=== PATIENT | female | born 1960 | race Caucasian/White ===

== ENCOUNTER 2016-11-03 12:16 | Emergency (ER) | payer BC, MEDICAID ==
--- NOTE | 2016-11-03 12:43 | UC ---
Hand/Wrist HPI - HPI Summary HPI Summary: RIGHT THUMB PAIN X 2 WEEKS NO KNOWN INJURY , PAIN IS AT VOLAR ASPECT OF THE MCP JOINT DIFFICULTY WITH FLEXING THE FINGER. - History Of Current Complaint Chief Complaint: UCUpperExtremity Stated Complaint: RIGHT THUMB PAIN Time Seen by Provider: 11/03/16 12:21 Hx Obtained From: Patient Hx Last Menstrual Period: age 48 Onset/Duration: Gradual Onset, Lasting Weeks - 2, Still Present Severity Initially: Moderate Severity Currently: Severe Character Of Pain: Aching, Throbbing, Spasmodic, Stiffness Aggravating Factor(s): Movement, Flexion Alleviating: Nothing Associated Signs And Symptoms: Positive: Swelling. Negative: Redness, Bruising , Fever, Weakness, Numbness/Tingling - Allergies/Home Medications Allergies/Adverse Reactions: Allergies Allergy/AdvReac Type Severity Reaction Status Date / Time Erythromycin Allergy Severe FACIAL Verified 11/03/16 12:29 SWELLING PMH/Surg Hx/FS Hx/Imm Hx Endocrine History Of: Denies: Diabetes, Thyroid Disease Cardiovascular History Of: Denies: Cardiac Disorders, Hypertension, Pacemaker/ICD Respiratory History Of: Reports: COPD, Bronchitis - HX OF Denies: Asthma GI/ History Of: Denies: Ulcer Neurological History Of: Reports: Migraine - OCCASIONAL Cancer History Of: Denies: Breast Cancer - Surgical History Surgical History: Yes Surgery Procedure, Year, and Place: 1988 CYST REMOVED FROM NECK, [facility]. 10/2014 RIGHT SHOULDER SURGERIES X 2, [facility] - Family History Known Family History: Positive: None Negative: Seizure Disorder Family History: FHx of [place] - Social History Alcohol Use: None Substance Use Type: None Smoking Status (MU): Former Smoker Type: Cigarettes Amount Used/How Often: 1 PPD X 25 YEARS Length of Time of Smoking/Using Tobacco: QUIT 2013 Have You Smoked in the Last Year: No When Did the Patient Quit Smoking/Using Tobacco: 2012 - Immunization History Most Recent Influenza Vaccination: 2012? Most Recent Tetanus Shot: unkown Most Recent Pneumonia Vaccination: never Review of Systems Constitutional: Negative Skin: Negative Eyes: Negative ENT: Negative Respiratory: Negative Cardiovascular: Negative All Other Systems Reviewed And Are Negative: Yes Physical Exam Triage Information Reviewed: Yes Appearance: Well-Appearing, No Pain Distress, Well-Nourished Vital Signs: Initial Vital Signs Pulse 87 11/03/16 12:20 Resp 22 11/03/16 12:20 BP 144/84 02/28/17 12:20 Pulse Ox 97 11/03/16 12:20 Vital Signs Reviewed: Yes Eye Exam: Normal Eyes: Positive: Conjunctiva Clear ENT: Positive: Normal ENT inspection, Hearing grossly normal, Pharynx normal Neck exam: Normal Neck: Positive: Supple, Nontender, No Lymphadenopathy Respiratory: Positive: Chest non-tender, Lungs clear, Normal breath sounds Cardiovascular: Positive: RRR, No Murmur, Pulses Normal Musculoskeletal: Positive: Other: - RIGHT THUMB: + SWELLING , + TENDERNESS VOLAR ASPECT OF THE FINGER , LIMITED ROM ON FLEXION Hand/Wrist Course/Dx - Differential Dx/Diagnosis Provider Diagnoses: TRIGGER FINGER RIGHT THUMB Discharge - Discharge Plan Condition: Stable Disposition: HOME Patient Education Materials: Trigger Finger (ED) Referrals: Rome Romeo MD [Medical Doctor] - As Soon As Possible Kiet Mejía MD [Medical Doctor] -
--- NOTE | 2016-11-03 13:02 | RAD ---
Indication: Multiple weeks RIGHT thumb pain without proceeding injury. Comparison: None. Technique: AP, lateral, and oblique views RIGHT thumb. Report: Minimal osteophytosis from the trapezium first metacarpal joint through the interphalangeal joint. Negative for significant joint space narrowing. Negative for fracture or malalignment. Unremarkable soft tissue contours. IMPRESSION: Mild polyarticular degenerative arthropathy.
[2016-11-03 13:16] VITALS: BP 139/78
== END 2016-11-03 13:17 | disposition home or self-care (01) ==
LOC: UCCORT 12:16
DX: M65.311 Trigger thumb, right thumb (principal); Z88.1 Allergy status to other antibiotic agents; Z87.891 Personal history of nicotine dependence
CPT/HCPCS: 99211; G0463

== ENCOUNTER 2016-11-04 17:14 | Emergency (ER) | payer BC ==
[2016-11-04 17:20] VITALS: BP 134/83
--- NOTE | 2016-11-04 17:37 | UC ---
Allergic Reaction HPI - HPI Summary HPI Summary: The patient comes in today for: 1. Possible allergic reaction: Onset: Last night. Palliative/provocative: Nothing makes her symptoms better or worse. Quality: Flushed in the face. Region: Cheeks. Severity: 0/10 Time: Constant. Associated symptoms: Event: The patient was seen by Dr. Romeo yesterday. She had a cortisone injection into her right thumb for a trigger finger. She noted puffiness around the eyes and flushing of the face last, but worse this AM. She called Dr. Romeo's office and they told her to come here for evaluation. Shortness of breath: Nothing new. She feels flushed in the face and puffy around the eyes. 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 Endocrine History Of: Denies: Diabetes, Thyroid Disease, Hyperthyroidism, Hypothyroidism, Dyslipidemia Cardiovascular History Of: Denies: Cardiac Disorders, Hypertension, Pacemaker/ICD, Myocardial Infarction , Congestive Heart Failure, Atrial Fibrillation, Deep Vein Thrombosis, Bleeding Disorders Respiratory History Of: Reports: COPD, Bronchitis - HX OF Denies: Asthma GI/ History Of: Denies: Gastroesophageal Reflux, Ulcer, Gastrointestinal Bleed, Gall Bladder Disease, Kidney Stones, Diverticulitis, Renal Disease, Urosepsis Neurological History Of: Reports: Migraine - OCCASIONAL Denies: TIA, CVA, Dementia, Seizures Psychological History Of: Denies: Anxiety, Depression, Bipolar Disorder, Schizophrenia, Post Traumatic Stress Disorder Cancer History Of: Denies: Lung Cancer, Colorectal Cancer, Breast Cancer, Prostate Cancer, Cervical Cancer Other History Of: Negative For: HIV, Hepatitis B, Hepatitis C, Anticoagulant Therapy - Surgical History Surgical History: Yes Surgery Procedure, Year, and Place: 1988 CYST REMOVED FROM NECK, [facility]. 10/2014 RIGHT SHOULDER SURGERIES X 2, [facility] - Family History Known Family History: Positive: Diabetes Negative: Cardiac Disease, Hypertension, Seizure Disorder Family History: FHx of [place] - Social History Occupation: Employed Full-time Alcohol Use: None Substance Use Type: None Smoking Status (MU): Former Smoker Type: Cigarettes Amount Used/How Often: 1 PPD X 25 YEARS Length of Time of Smoking/Using Tobacco: QUIT 2013 Have You Smoked in the Last Year: No When Did the Patient Quit Smoking/Using Tobacco: 2012 - Immunization History Most Recent Influenza Vaccination: 2012? Most Recent Tetanus Shot: unkown Most Recent Pneumonia Vaccination: never Review of Systems Constitutional: Negative Skin: Negative Eyes: Negative ENT: Negative Respiratory: Negative Cardiovascular: Negative Gastrointestinal: Negative Genitourinary: Negative All Other Systems Reviewed And Are Negative: Yes Physical Exam Triage Information Reviewed: Yes Appearance: Well-Appearing, No Pain Distress, Well-Nourished Vital Signs: Initial Vital Signs Temp 96.4 F 11/04/16 17:18 Pulse 101 11/04/16 17:18 Resp 14 11/04/16 17:18 BP 134/83 11/04/16 17:18 Pulse Ox 96 11/04/16 17:18 Vital Signs Reviewed: Yes Eyes: Positive: Conjunctiva Clear. Negative: Discharge ENT: Positive: Hearing grossly normal. Negative: Pharyngeal erythema, Nasal congestion, Nasal drainage, TM bulging, TM dull, TM red, Tonsillar swelling, Tonsillar exudate Dental: Negative: Gross Decay/Caries @, Dental Fracture @ Neck: Positive: Supple, Nontender, No Lymphadenopathy. Negative: Nuchal Rigidity Respiratory: Positive: Chest non-tender, Lungs clear, No respiratory distress, No accessory muscle use. Negative: Crackles, Stridor Cardiovascular: Positive: RRR, No Murmur Abdomen Description: Positive: Nontender, No Organomegaly, Soft. Negative: Distended, Guarding Musculoskeletal: Positive: Strength Intact, ROM Intact Neurological: Positive: Alert, Muscle Tone Normal Psychological: Positive: Age Appropriate Behavior, Consolable Skin: Positive: Other - There was no pathologic or worrisom puffiness around the eyes. There is no marked flushing of the cheeks.. Negative: rashes, breakdown Allergic Reaction Course/Dx - Course Course Of Treatment: Patient was told that the symptoms she has had is probably from her injection medication--no allergy to the injection. - Differential Dx/Diagnosis Provider Diagnoses: Minimal edema (associated to steroid use) Discharge - Discharge Plan Condition: Stable Disposition: HOME Patient Education Materials: Edema (ED) Referrals: PARDEEP Raza [Primary Care Provider] - If Needed (Please see your primary care provider as needed. If you have any problems, be seen again at that time.) Additional Instructions: Please continue to monitor your symptoms. YOu may notice these symptoms continuing for a few more days to a week. If you get worse, you can see your primary care provider or us for a re-evaluation.
== END 2016-11-04 18:11 | disposition home or self-care (01) ==
LOC: UCCORT 17:14
DX: R60.9 Edema, unspecified (principal); R23.2 Flushing; Z88.1 Allergy status to other antibiotic agents; Z87.891 Personal history of nicotine dependence
CPT/HCPCS: 99211; G0463

== ENCOUNTER 2017-01-12 09:38 | Emergency (ER) | payer BC ==
[2017-01-12 09:49] VITALS: BP 144/95
[2017-01-12] MEDS ORDERED: HYDROcodone/ACETAMIN 5-325 MG* 1 TAB PO ONE (10:14)
--- NOTE | 2017-01-12 10:59 | RAD ---
INDICATION: Right ankle injury. TECHNIQUE: 3 views of the right ankle were obtained. FINDINGS: Soft tissue swelling is noted along the anterolateral aspect of the ankle. There is a faint radiolucent line seen on the lateral view extending through the distal fibula possibly representing a transverse nondisplaced fracture. No other fractures are seen. Joint spaces appear maintained. IMPRESSION: SOFT TISSUE SWELLING AND PROBABLE NONDISPLACED FRACTURE OF THE DISTAL FIBULA.
--- NOTE | 2017-01-12 11:00 | RAD ---
INDICATION: Left knee injury. TECHNIQUE: 4 views of the left knee were obtained. FINDINGS: There is an oblique slightly comminuted fracture of the proximal diaphysis of the fibula. There is slight lateral displacement of the distal fragment relative to the proximal fragment of approximately 1 cortical diameter. No other fractures are seen. No joint effusion is present. Joint spaces appear maintained. IMPRESSION: OBLIQUE SLIGHTLY DISPLACED FRACTURE OF THE PROXIMAL FIBULA.
--- NOTE | 2017-01-12 11:01 | RAD ---
HISTORY: Fall, right ankle and foot pain COMPARISONS: None VIEWS: 3, Frontal, lateral, and oblique views of the right foot FINDINGS: BONE DENSITY: Normal. BONES: There is no displaced fracture. There are calcaneal enthesophytes. JOINTS: There is osteoarthritis of the first MTP joint ALIGNMENT: There is hallux valgus SOFT TISSUES: Unremarkable. OTHER FINDINGS: None. IMPRESSION: OSTEOARTHRITIS. NO ACUTE OSSEOUS INJURY. IF SYMPTOMS PERSIST, RECOMMEND REPEAT IMAGING.
--- NOTE | 2017-01-12 11:48 | RAD ---
HISTORY: Trauma to right leg, trauma to left leg COMPARISONS: None VIEWS: 4, Frontal and lateral views of the right foreleg and of the left foreleg FINDINGS: Right: BONE DENSITY: Normal. BONES: There is a questionable nondisplaced fracture of the medial tibial plateau JOINTS: There is no arthropathy. ALIGNMENT: There is no dislocation. The alignment is anatomic. SOFT TISSUES: Unremarkable. Left: BONE DENSITY: Normal. BONES: There is a slightly displaced fracture of the proximal fibular diaphysis. JOINTS: There is no arthropathy. ALIGNMENT: There is no dislocation. The alignment is anatomic. SOFT TISSUES: Unremarkable. OTHER FINDINGS: None. IMPRESSION: 1. FRACTURE OF THE PROXIMAL FIBULAR DIAPHYSIS ON THE LEFT. 2. QUESTIONABLE FRACTURE OF MEDIAL TIBIAL PLATEAU ON THE RIGHT. RECOMMEND CORRELATION WITH DEDICATED IMAGING OF THE RIGHT KNEE
--- NOTE | 2017-01-12 13:34 | RAD ---
HISTORY: Fall, right knee pain COMPARISONS: None VIEWS: 4, Frontal, lateral, axial, and oblique views of the right knee FINDINGS: BONE DENSITY: Normal. BONES: There is no displaced fracture. JOINTS: There is no arthropathy. ALIGNMENT: There is no dislocation. SOFT TISSUES: Unremarkable. OTHER FINDINGS: None. IMPRESSION: NO ACUTE OSSEOUS INJURY. IF SYMPTOMS PERSIST, RECOMMEND REPEAT IMAGING.
--- NOTE | 2017-02-20 02:46 | UC ---
Ananth Sung Salem, scribed for Tika Dye MD on 01/12/17 at 1011 . Minor Trauma HPI - HPI Summary HPI Summary: Patient is a 56 y/o female who presents to the with 10/10 left knee and right ankle pain since earlier today. She reports that she fell 2-3 steps and landed on the sidewalk. Her ankle twisted when she fell and her right shoulder landed on the lawn. She denies any hip or back pain. Pt is currently on Augmentin for bronchitis. Pt has COPD. Patients medication reviewed this visit. - History of Current Complaint Chief Complaint: UCLowerExtremity Stated Complaint: LEG INJURY Time Seen by Provider: 01/12/17 10:00 Hx Obtained From: Patient, Family/Integration Lead - . Hx Last Menstrual Period: age 48 Onset/Duration: Gradual Onset, Lasting Hours, Still Present Severity Initially: Moderate Severity Currently: Moderate Pain Intensity: 10 Pain Scale Used: 0-10 Numeric Mechanism Of Injury: Blunt Trauma Aggravating Factor(s): Ambulation, Movement Alleviating Factor(s): Rest - Allergies/Home Medications Allergies/Adverse Reactions: Allergies Allergy/AdvReac Type Severity Reaction Status Date / Time Erythromycin Allergy Severe FACIAL Verified 11/03/16 12:29 SWELLING Home Medications: Home Medications Amoxicillin/Clavulanate TAB* [Augmentin TAB 875*] 875 mg PO DAILY 01/12/17 [ History Confirmed 01/12/17] Omeprazole CAP* [Prilosec CAP* 20 MG] 20 mg PO 01/12/17 [History] PMH/Surg Hx/FS Hx/Imm Hx Endocrine History Of: Denies: Diabetes, Thyroid Disease, Hyperthyroidism, Hypothyroidism, Dyslipidemia Cardiovascular History Of: Denies: Cardiac Disorders, Hypertension, Pacemaker/ICD, Myocardial Infarction , Congestive Heart Failure, Atrial Fibrillation, Deep Vein Thrombosis, Bleeding Disorders Respiratory History Of: Reports: COPD, Bronchitis - HX OF Denies: Asthma GI/ History Of: Denies: Gastroesophageal Reflux, Ulcer, Gastrointestinal Bleed, Gall Bladder Disease, Kidney Stones, Diverticulitis, Renal Disease, Urosepsis Neurological History Of: Reports: Migraine - OCCASIONAL Denies: TIA, CVA, Dementia, Seizures Psychological History Of: Denies: Anxiety, Depression, Bipolar Disorder, Schizophrenia, Post Traumatic Stress Disorder Cancer History Of: Denies: Lung Cancer, Colorectal Cancer, Breast Cancer, Prostate Cancer, Cervical Cancer Other History Of: Negative For: HIV, Hepatitis B, Hepatitis C, Anticoagulant Therapy - Surgical History Surgical History: Yes Surgery Procedure, Year, and Place: 1988 CYST REMOVED FROM NECK, [facility]. 10/2014 RIGHT SHOULDER SURGERIES X 2, [facility] - Family History Known Family History: Positive: Diabetes Negative: Cardiac Disease, Hypertension, Seizure Disorder Family History: FHx of [place] - Social History Alcohol Use: None Substance Use Type: None Smoking Status (MU): Former Smoker Type: Cigarettes Amount Used/How Often: 1 PPD X 25 YEARS Length of Time of Smoking/Using Tobacco: QUIT 2013 Have You Smoked in the Last Year: No When Did the Patient Quit Smoking/Using Tobacco: 2012 - Immunization History Most Recent Influenza Vaccination: 2012? Most Recent Tetanus Shot: unkown Most Recent Pneumonia Vaccination: never Review of Systems Constitutional: Negative Musculoskeletal: Other: - see HPI. All Other Systems Reviewed And Are Negative: Yes Physical Exam Triage Information Reviewed: Yes Appearance: Well-Nourished, Pain Distress - pain w/ examination, sitting in chair, Obese Vital Signs: Initial Vital Signs Temp 97.4 F 01/12/17 09:41 Pulse 95 01/12/17 09:41 Resp 22 01/12/17 09:41 BP 144/95 01/12/17 09:41 Pulse Ox 98 01/12/17 09:41 Blood pressure noted and patient informed to follow up with PCP. Vital Signs Reviewed: Yes Eye Exam: Normal ENT Exam: Normal ENT: Positive: Normal ENT inspection Neck exam: Normal Neck: Positive: Supple, Nontender Respiratory Exam: Normal - no dyspnea, no tachypnea, normal respiratory rate Respiratory: Positive: Chest non-tender, Lungs clear, Normal breath sounds, No respiratory distress, No accessory muscle use Cardiovascular Exam: Normal - Heart rate regular, good general skin color, good capillary refill Cardiovascular: Positive: RRR, No Murmur, Pulses Normal Abdominal Exam: Normal Abdomen Description: Positive: Nontender, No Organomegaly, Soft Bowel Sounds: Positive: Present Musculoskeletal Exam: Other - R ankle tender lateral mall and distal fib. Foot nontender, good distal pulses. No prox tib fib tenderness appreciated. R knee nontender to exam. L knee + echymosis, tender throughout including inf patella , mild crepitus. No distal LLE tenderness to exam. L foot good pulses, nontender. Neurological Exam: Normal - nonfocal, grossly intact Psychological Exam: Normal - conversing easily and appropriately Skin Exam: Normal - no visible or reported rash + ecchymosis Diagnostics - Radiology Ankle right XR Radiology Interpretation Completed By: Radiologist - IMPRESSION: SOFT TISSUE SWELLING AND PROBABLE NONDISPLACED FRACTURE OF THE DISTAL FIBULA. Foot right XR Radiology Interpretation Completed By: Radiologist - IMPRESSION: OSTEOARTHRITIS. NO ACUTE OSSEOUS INJURY. IF SYMPTOMS PERSIST, RECOMMEND REPEAT IMAGING. Knee left XR Radiology Interpretation Completed By: Radiologist - IMPRESSION: OBLIQUE SLIGHTLY DISPLACED FRACTURE OF THE PROXIMAL FIBULA. Lower Leg Right Radiology Interpretation Completed By: Radiologist - IMPRESSION: 1. FRACTURE OF THE PROXIMAL FIBULAR DIAPHYSIS ON THE LEFT. 2. QUESTIONABLE FRACTURE OF MEDIAL TIBIAL PLATEAU ON THE RIGHT. RECOMMEND CORRELATION WITH DEDICATED IMAGING OF THE RIGHT KNEE Lower Leg Left Radiology Interpretation Completed By: Radiologist - IMPRESSION: 1. FRACTURE OF THE PROXIMAL FIBULAR DIAPHYSIS ON THE LEFT. 2. QUESTIONABLE FRACTURE OF MEDIAL TIBIAL PLATEAU ON THE RIGHT. RECOMMEND CORRELATION WITH DEDICATED IMAGING OF THE RIGHT KNEE Knee right Radiology Interpretation Completed By: Radiologist - See EMR - pending. Re-Evaluation - Re-Evaluation First Eval Re-Evaluation Time: 11:14 Comment: Informed pt of results. Second Eval Re-Evaluation Time: 12:35 Comment: Informed pt of plan. Minor Trauma Course/Dx - Course Course Of Treatment: Xrays ordered @ 1115. Reviewed xray results with pt and spouse: + fx distal fib R, + fx prox fib L. Based on these reports, further xrays ordered, noteworthy for the above, also questionable problem tib plateau ( see radiology reports in [facility] and xrays for actual imaging). She is unable to ambulate 2/2 pain, currently in wheelchair. Splinting challenging as well, given current wheelchair condition and unable to utilize crutches. D/w orthopedic surgeon - he requests pt d/c'd from [facility] to go to his office so that coa and tx plan can be determined. Further formal splinting / immobilization as well as scripts for analgesia per orthopedics. Ms. Sosa and her express understanding and agreement, will go from [facility] to office. See avs instructions. questions answered as posed. Referral orthopedic surgeon - Differential Dx/Diagnosis Provider Diagnoses: R distal fib fx. L prox fib fx. Contusions - Physician Notifications Discussed Patient Care With: Dr. Conrad (ortho) @ [id number]. Discussed case. Pt will see orthopedist this afternoon. Discharge - Discharge Plan Condition: Stable Disposition: HOME Patient Education Materials: Ankle Fracture (ED) Referrals: Kemal Luciano MD [Medical Doctor] - PARDEEP Raza [Primary Care Provider] - Additional Instructions: Please follow up with your primary care provider per routine. Seek medical attention for worsening problems in the meantime. Follow up with Dr. Luciano this afternoon - call to confirm appointment time. Mobilization / Immobilization recommendations per Dr. Luciano. Pain medication prescription per Dr. Luciano. The documentation as recorded by the Ananth cronin Salem accurately reflects the service I personally performed and the decisions made by me, Tika Dye MD.
== END 2017-01-12 13:09 | disposition home or self-care (01) ==
LOC: UCEAST 09:38
DX: S82.432A Displaced oblique fracture of shaft of left fibula, initial encounter for closed fracture (principal); S80.02XA Contusion of left knee, initial encounter; W10.9XXA Fall (on) (from) unspecified stairs and steps, initial encounter; Y93.9 Activity, unspecified; J44.9 Chronic obstructive pulmonary disease, unspecified; G43.909 Migraine, unspecified, not intractable, without status migrainosus; E66.9 Obesity, unspecified; Z88.1 Allergy status to other antibiotic agents; Z87.891 Personal history of nicotine dependence
CPT/HCPCS: 99213; G0463

== ENCOUNTER 2017-03-28 19:05 | Emergency (ER) | payer BC, MEDICAID ==
[2017-03-28 19:20] VITALS: BP 137/69
--- NOTE | 2017-03-28 19:33 | UC ---
Lower Extremity/Ankle HPI - HPI Summary HPI Summary: Pt reports that she was walking through parking lot and stepped in a hole and tripped onto bilateral abrasions and knee pain. Pt has history of lower extremity fracture 6 months ago. - History of Current Complaint Chief Complaint: UCLowerExtremity Stated Complaint: PT FELL/BILATERAL KNEE INJURY Time Seen by Provider: 03/28/17 19:26 Hx Obtained From: Patient Hx Last Menstrual Period: age 48 ?: No Onset/Duration: Sudden Onset, Still Present Severity Initially: Moderate Severity Currently: Moderate Aggravating Factor(s): Standing, Ambulation Alleviating Factor(s): Rest, Elevation Able to Bear Weight: Yes - Risk Factors Gout Risk Factors: Age Over 40, Obesity DVT Risk Factors: Negative Septic Arthritis Risk Factor: Negative - Allergies/Home Medications Allergies/Adverse Reactions: Allergies Allergy/AdvReac Type Severity Reaction Status Date / Time Erythromycin Allergy Severe FACIAL Verified 03/28/17 19:20 SWELLING PMH/Surg Hx/FS Hx/Imm Hx Previously Healthy: Yes Other History Of: Negative For: HIV, Hepatitis B, Hepatitis C, Anticoagulant Therapy - Surgical History Surgical History: Yes Surgery Procedure, Year, and Place: 1988 CYST REMOVED FROM NECK, [facility]. 10/2014 RIGHT SHOULDER SURGERIES X 2, [facility] - Family History Known Family History: Positive: Diabetes Negative: Cardiac Disease, Hypertension, Seizure Disorder Family History: FHx of [place] - Social History Occupation: Unemployed Lives: With Family Alcohol Use: None Substance Use Type: None Smoking Status (MU): Former Smoker Type: Cigarettes Amount Used/How Often: 1 PPD X 25 YEARS Length of Time of Smoking/Using Tobacco: QUIT 2013 Have You Smoked in the Last Year: No When Did the Patient Quit Smoking/Using Tobacco: 2012 - Immunization History Most Recent Influenza Vaccination: 2012? Most Recent Tetanus Shot: unkown Most Recent Pneumonia Vaccination: never Review of Systems Constitutional: Negative Skin: Other - abrasion Eyes: Negative ENT: Negative Respiratory: Negative Cardiovascular: Negative Gastrointestinal: Negative Genitourinary: Negative Motor: Decreased ROM - bilateral knee Neurovascular: Negative Musculoskeletal: Arthralgia - bilateral knees, Myalgia - bialteral knees Neurological: Negative Psychological: Negative All Other Systems Reviewed And Are Negative: Yes Physical Exam Triage Information Reviewed: Yes Appearance: Pain Distress - mild Vital Signs: Initial Vital Signs Temp 98.7 F 03/28/17 19:15 Pulse 90 03/28/17 19:15 Resp 19 03/28/17 19:15 BP 137/69 03/28/17 19:15 Pulse Ox 96 03/28/17 19:15 Vital Signs Reviewed: No Eye Exam: Normal Neck exam: Normal Respiratory Exam: Normal Cardiovascular Exam: Normal Musculoskeletal Exam: Other Musculoskeletal: Positive: ROM Limited @ - bialteral knees Neurological Exam: Normal Psychological Exam: Normal Skin Exam: Other - abrasiona bialteral knees each superficial and ~ 2 cm diameter Lower Extremity Course/Dx - Course Course Of Treatment: IMPRESSION: OBLIQUE MINIMALLY DISPLACED FRACTURE OF THE PROXIMAL FIBULA UNCHANGED IN. POSITION FROM THE PRIOR EXAM WITH MILD INTERVAL HEALING RESPONSE. RECOMMEND CONTINUED. FOLLOW-UP TO DEMONSTRATE COMPLETE HEALING. I discussed with the pt to follow up with her orthopedic provider as soon as possible. - Differential Dx/Diagnosis Differential Diagnosis/HQI/PQRI: Fracture (Closed), Other - abrasions Provider Diagnoses: Fracture left fibula. IMPRESSION: OBLIQUE MINIMALLY DISPLACED FRACTURE OF THE PROXIMAL FIBULA UNCHANGED IN. POSITION FROM THE PRIOR EXAM WITH MILD INTERVAL HEALING RESPONSE. RECOMMEND CONTINUED. FOLLOW-UP TO DEMONSTRATE COMPLETE HEALING. Discharge - Discharge Plan Condition: Stable Disposition: HOME Patient Education Materials: Leg Fracture (ED) Referrals: Kemal Luciano MD [Medical Doctor] - 1 Day PARDEEP Raza [Primary Care Provider] - Additional Instructions: Please do not bear weight on the affected leg. Please follow up immediately with your orthopedic provider.
--- NOTE | 2017-03-28 20:15 | RAD ---
INDICATION: Left lower leg injury. COMPARISON: Comparison is made with a prior x-ray study of the left lower leg from January 21, 2017. TECHNIQUE: 2 views of the left lower leg were obtained. FINDINGS: There is an oblique slightly comminuted fracture of the proximal diaphysis of the fibula. This is minimally displaced with the distal fragment displaced one cortical diameter lateral relative to the proximal fragment. There is some bony callus formation since the prior exam although the fracture is still well visualized. No additional fracture is seen. IMPRESSION: OBLIQUE MINIMALLY DISPLACED FRACTURE OF THE PROXIMAL FIBULA UNCHANGED IN POSITION FROM THE PRIOR EXAM WITH MILD INTERVAL HEALING RESPONSE. RECOMMEND CONTINUED FOLLOW-UP TO DEMONSTRATE COMPLETE HEALING.
--- NOTE | 2017-03-28 20:19 | RAD ---
INDICATION: Right lower leg injury. Comparison is made with a prior x-ray study of the right ankle from February 08, 2017. TECHNIQUE: 2 views of the right lower leg were obtained. FINDINGS: The bones are in normal alignment. There is mild soft tissue swelling adjacent to the distal fibula. The previously noted small avulsion fracture fragment arising from the distal fibula is not well seen on this study. No additional fracture is seen. IMPRESSION: SOFT TISSUE SWELLING. THE PREVIOUSLY NOTED SMALL AVULSION FRACTURE FRAGMENT ARISING FROM THE DISTAL FIBULA IS NOT WELL SEEN ON THIS STUDY.
== END 2017-03-28 20:48 | disposition home or self-care (01) ==
LOC: UCCORT 19:05
DX: S82.892D Other fracture of left lower leg, subsequent encounter for closed fracture with routine healing (principal); W19.XXXD Unspecified fall, subsequent encounter; Y92.9 Unspecified place or not applicable; Z87.891 Personal history of nicotine dependence; Z88.1 Allergy status to other antibiotic agents
CPT/HCPCS: 99212; G0463

== ENCOUNTER 2017-06-23 23:08 | Inpatient (IN) | payer OTHER ==
[2017-06-23] MEDS ORDERED: Albuterol 2.5 MG/3 ML NEB.SOL* (0.083%) INH ONE (23:26)
[2017-06-23] MEDS ORDERED: Magnesium Sulfate 2 GM IV* 2 GM/50 ML BAG IVPB ONE (23:29)
[2017-06-23] MEDS ORDERED: LORazepam INJ* 2 MG/ML 1 ML VIAL IV PUSH ONE (23:48)
[2017-06-24 00:13] LABS: Hematocrit 44 % (35-47); Mean Corpuscular HGB Conc 34 g/dl (31-36); Mean Corpuscular Hemoglobin 31 pg (27-31); Mean Corpuscular Volume 92 fL (80-97); Mean Platelet Volume 8 um3 (7.4-10.4); Red Blood Count 4.78 10^6/ul (4.0-5.4); Red Cell Distribution Width 14 % (10.5-15)
[2017-06-24 00:16] LABS: Comments Flag Yes
[2017-06-24 00:27] LABS: Albumin 3.7 g/dL (3.2-5.2); BUN/Creatinine Ratio 13.5 (8-20); Calcium 8.6 mg/dL (8.6-10.3); EGFR African American 64.9 (>60); EGFR Non-African American 50.5 (>60); Globulin 2.6 g/dL (2-4); Magnesium 1.9 mg/dL (1.9-2.7); Total Bilirubin 0.9 mg/dL (0.2-1.0); Total Protein 6.3 g/dL (6.4-8.9)
[2017-06-24 00:28] LABS: Troponin I 0.01 ng/mL (<0.04)
--- NOTE | 2017-06-24 05:14 | ED ---
Jodi Sung Thomas, scribed for Johnnie Dunn MD on 06/23/17 at 2330 . Shortness of Breath - HPI Summary HPI Summary: The pt is a 57 y/o F BIBA c/o chest heaviness and SOB at rest that began today. EMS treated the patients SOB with Decadron 10mg, one DuoNeb, and an albuterol MATHEMATICS DEPARTMENT CHAIR. Pt additionally c/o wheezing and a cough. Pt denies leg pain and leg swelling. She has been dealing with bronchitis for the last four weeks. She took a course of Augmentin as well as a course of Levaquin that she finished 3- 4 days ago. PMHx includes COPD, emphysema, and hereditary ataxia. She had a stress test performed last week that was negative. She is a former smoker and stopped smoking three years ago. She recently drove 5 hours with frequent stops. She denies a Hx of CA and she denies a FHx of DVT. - History of Current Complaint Chief Complaint: EDShortnessOfBreath Hx Obtained From: Patient, EMS Onset/Duration: Still Present Dyspnea At: Rest Aggrevating Factors: Nothing Alleviating Factors: Nothing Associated Signs & Symptoms: Cough (Nonproductive) Related History: Similar Episode - Patient has been dealing with bronchitis for the last 4 weeks - Allergy/Home Medications Allergies/Adverse Reactions: Allergies Allergy/AdvReac Type Severity Reaction Status Date / Time Erythromycin Allergy Severe FACIAL Verified 03/28/17 19:20 SWELLING PMH/Surg Hx/FS Hx/Imm Hx Previously Healthy: No Endocrine/Hematology History: Denies: Hx Anticoagulant Therapy, Hx Diabetes, Hx Thyroid Disease Cardiovascular History: Denies: Hx Congestive Heart Failure, Hx Deep Vein Thrombosis, Hx Hypertension , Hx Myocardial Infarction, Hx Pacemaker/ICD Respiratory History: Reports: Hx Chronic Obstructive Pulmonary Disease (COPD), Other Respiratory Problems/Disorders - Hx emphysema Denies: Hx Asthma, Hx Lung Cancer GI History: Reports: Hx Hiatal Hernia Denies: Hx Gall Bladder Disease, Hx Gastrointestinal Bleed, Hx Ulcer, Hx Urosepsis History: Denies: Hx Kidney Stones, Hx Renal Disease Sensory History: Reports: Hx Contacts or Glasses - READING GLASSES, Hx Glaucoma - ?? Denies: Hx Hearing Aid Opthamlomology History: Reports: Hx Contacts or Glasses - READING GLASSES, Hx Glaucoma - ?? Neurological History: Reports: Hx Migraine - OCCASIONAL, Other Neuro Impairments /Disorders - DIZZINESS SPELLS SINCE A CHILE - NONE IN A GREAT WHILE. Hx hereditary atax Denies: Hx Dementia, Hx Seizures, Hx Transient Ischemic Attacks (TIA) Psychiatric History: Denies: Hx Anxiety, Hx Depression, Hx Panic Disorder, Hx Schizophrenia, Hx Bipolar Disorder - Cancer History Hx Chemotherapy: No Hx Radiation Therapy: No - Surgical History Surgery Procedure, Year, and Place: 1988 CYST REMOVED FROM NECK, [facility]. 10/2014 RIGHT SHOULDER SURGERIES X 2, [facility] Hx Anesthesia Reactions: No Infectious Disease History: No Infectious Disease History: Denies: Hx Clostridium Difficile, Hx Hepatitis, Hx Human Immunodeficiency Virus (HIV), Hx of Known/Suspected MRSA, Hx Shingles, Hx Tuberculosis, Hx Known/ Suspected VRE, Hx Known/Suspected VRSA, History Other Infectious Disease, Traveled Outside the [place] in Last 30 Days - Family History Known Family History: Positive: Diabetes, Other - FHx is negative for DVT Negative: Cardiac Disease, Hypertension, Seizure Disorder Family History: FHx of CA - Social History Alcohol Use: None Substance Use Type: Reports: None Hx Tobacco Use: Yes Smoking Status (MU): Former Smoker Type: Cigarettes Amount Used/How Often: 1 PPD X 25 YEARS. Quit in 2013 Length of Time of Smoking/Using Tobacco: QUIT 2013 Have You Smoked in the Last Year: No Review of Systems Negative: Fever Positive: Other - Chest heaviness Positive: Shortness Of Breath - at rest, Cough Negative: Other - NEGATIVE: leg pain, leg swelling All Other Systems Reviewed And Are Negative: Yes Physical Exam - Summary Physical Exam Summary: Appearance: Well-appearing, Well-nourished. Skin: Warm Eyes: Normal ENT: Normal Neck: Supple, nontender Respiratory: There are diffuse bilateral expiratory wheezes throughout the lung [place]. She is slightly tachypnic. Cardiovascular: Normal heart sounds. S1 and S2 are present. There is no murmur. Abdomen: Soft, nontender Bowel: Present Musculoskeletal: Normal, Strength/ROM Intact. There is no calf tenderness, swelling, or erythema. Neurological: Normal, Alert, Oriented to Person Psychiatric: Normal Triage Information Reviewed: Yes Vital Signs On Initial Exam: Initial Vitals Temp Pulse Resp BP Pulse Ox 98.6 F 108 24 159/82 90 06/23/17 23:10 06/23/17 23:10 06/23/17 23:10 06/23/17 23:10 06/23/17 23:10 Vital Signs Reviewed: Yes Diagnostics - Vital Signs Vital Signs Temp Pulse Resp BP Pulse Ox 06/23/17 23:10 98.6 F 108 24 159/82 90 - Laboratory Lab Results: Lab Results 06/24/17 06/24/17 06/24/17 Range/Units 00:00 00:03 23:58 WBC 12.0 H (3.5-10.8) 10^3/ul RBC 4.78 (4.0-5.4) 10^6/ul Hgb 15.0 (12.0-16.0) g/dl Hct 44 (35-47) % MCV 92 (80-97) fL MCH 31 (27-31) pg MCHC 34 (31-36) g/dl RDW 14 (10.5-15) % Plt Count 199 (150-450) 10^3/ul MPV 8 (7.4-10.4) um3 Neut % (Auto) 73.4 (38-83) % Lymph % (Auto) 13.8 L (25-47) % Sanders % (Auto) 9.9 H (1-9) % Eos % (Auto) 2.4 (0-6) % Baso % (Auto) 0.5 (0-2) % Absolute Neuts (auto) 8.8 H (1.5-7.7) 10^3/ul Absolute Lymphs (auto) 1.7 (1.0-4.8) 10^3/ul Absolute Monos (auto) 1.2 H (0-0.8) 10^3/ul Absolute Eos (auto) 0.3 (0-0.6) 10^3/ul Absolute Basos (auto) 0.1 (0-0.2) 10^3/ul Absolute Nucleated RBC 0 10^3/ul Nucleated RBC % 0 INR (Anticoag Therapy) (0.89-1.11) Sodium 138 (133-145) mmol/L Potassium 4.0 (3.5-5.0) mmol/L Chloride 109 (101-111) mmol/L Carbon Dioxide 20 L (22-32) mmol/L Anion Gap 9 (2-11) mmol/L BUN 15 (6-24) mg/dL Creatinine 1.11 H (0.51-0.95) mg/dL Est GFR ( Amer) 64.9 (>60) Est GFR (Non-Af Amer) 50.5 (>60) BUN/Creatinine Ratio 13.5 (8-20) Glucose 193 H (70-100) mg/dL Calcium 8.6 (8.6-10.3) mg/dL Magnesium 1.9 (1.9-2.7) mg/dL Total Bilirubin 0.90 (0.2-1.0) mg/dL AST 74 H (13-39) U/L ALT 54 H (7-52) U/L Alkaline Phosphatase 93 (34-104) U/L Troponin I 0.01 (<0.04) ng/mL B-Natriuretic Peptide 10 ( - 100) pg/mL Total Protein 6.3 L (6.4-8.9) g/dL Albumin 3.7 (3.2-5.2) g/dL Globulin 2.6 (2-4) g/dL Albumin/Globulin Ratio 1.4 (1-3) 06/24/17 Range/Units 23:58 WBC (3.5-10.8) 10^3/ul RBC (4.0-5.4) 10^6/ul Hgb (12.0-16.0) g/dl Hct (35-47) % MCV (80-97) fL MCH (27-31) pg MCHC (31-36) g/dl RDW (10.5-15) % Plt Count (150-450) 10^3/ul MPV (7.4-10.4) um3 Neut % (Auto) (38-83) % Lymph % (Auto) (25-47) % Sanders % (Auto) (1-9) % Eos % (Auto) (0-6) % Baso % (Auto) (0-2) % Absolute Neuts (auto) (1.5-7.7) 10^3/ul Absolute Lymphs (auto) (1.0-4.8) 10^3/ul Absolute Monos (auto) (0-0.8) 10^3/ul Absolute Eos (auto) (0-0.6) 10^3/ul Absolute Basos (auto) (0-0.2) 10^3/ul Absolute Nucleated RBC 10^3/ul Nucleated RBC % INR (Anticoag Therapy) 0.89 (0.89-1.11) Sodium (133-145) mmol/L Potassium (3.5-5.0) mmol/L Chloride (101-111) mmol/L Carbon Dioxide (22-32) mmol/L Anion Gap (2-11) mmol/L BUN (6-24) mg/dL Creatinine (0.51-0.95) mg/dL Est GFR ( Amer) (>60) Est GFR (Non-Af Amer) (>60) BUN/Creatinine Ratio (8-20) Glucose (70-100) mg/dL Calcium (8.6-10.3) mg/dL Magnesium (1.9-2.7) mg/dL Total Bilirubin (0.2-1.0) mg/dL AST (13-39) U/L ALT (7-52) U/L Alkaline Phosphatase (34-104) U/L Troponin I (<0.04) ng/mL B-Natriuretic Peptide ( - 100) pg/mL Total Protein (6.4-8.9) g/dL Albumin (3.2-5.2) g/dL Globulin (2-4) g/dL Albumin/Globulin Ratio (1-3) Result Diagrams: 06/24/17 23:58 06/24/17 00:03 Lab Statement: Any lab studies that have been ordered have been reviewed, and results considered in the medical decision making process. - EKG 23:35 Cardiac Rate: Tachycardia - 101 BPM EKG Rhythm: Sinus Tachycardia EKG Interpretation: No acute ischemic changes. No ectopy. Re-Evaluation - Re-Evaluation First Eval Re-Evaluation Time: 03:18 Change: Unchanged Comment: Patient was given Ativan. Family member is now in the room as well as RT. RR is in the high 20s. Course/Dx - Course Course Of Treatment: pt placed on bipap continues to be tachypneic with increased WOB, admitted to ICU for continuous bipap and monitoring - Diagnoses Provider Diagnoses: COPD exacerbation - Physician Notifications Discussed Care of Patient With: Sondra Guadarrama Instructed by Provider To: Admit As Inpatient Discharge - Discharge Plan Condition: Stable Disposition: ADMITTED TO [facility] The documentation as recorded by the Jodi cronin Thomas accurately reflects the service I personally performed and the decisions made by me, Johnnie Dunn MD.
[2017-06-24] MEDS ORDERED: Acetaminophen TAB* 325 MG PO PRN (05:50)
[2017-06-24] MEDS ORDERED: Albuterol 2.5 MG/3 ML NEB.SOL* (0.083%) INH PRN (05:50)
[2017-06-24] MEDS ORDERED: LORazepam INJ* 2 MG/ML 1 ML VIAL IV PUSH PRN (05:50)
[2017-06-24] MEDS ORDERED: Vancomycin per Pharmacy* NOTE FOLLOW UP PRN (06:08)
[2017-06-24] MEDS ORDERED: Vancomycin(*) 1,500 MG in NS 0.9% 250 ML* 250 ML IVPB ONE (06:15)
[2017-06-24] MEDS: NS 0.9% 1000 ML* 1,000 ML IV SCH (06:39)
--- NOTE | 2017-06-24 07:23 | RAD ---
INDICATION: Pneumonia. COMPARISON: Comparison is made with a prior chest x-ray study from June 09, 2017. TECHNIQUE: A portable view of the chest was obtained. FINDINGS: Cardiac and mediastinal contours appear to be within normal limits. The lungs are underinflated. There is a small infiltrate at the left lung base. No pleural effusion is seen. IMPRESSION: SMALL LEFT BASILAR INFILTRATE.
[2017-06-24] MEDS ORDERED: Cefepime(*) 1 GM in NS 0.9% 50 ML* 50 ML IVPB SCH (08:00)
[2017-06-24] MEDS: methylPREDNISolone SOD 40 MG* 1 ML VIAL IV SCH ×2 (08:14→20:06)
--- NOTE | 2017-06-24 08:18 | ED ---
Jodi Sung Thomas, scribed for Johnnie Dunn MD on 06/24/17 at 0539 . Progress - Progress Note Progress Note: CXR. Interpreted by ED physician. Impression: Diffuse pulmonary congestion. No acute intrathoracic process. No consolidation Re-Evaluation - Re-Evaluation First Eval Re-Evaluation Time: 03:18 Change: Unchanged Comment: Patient was given Ativan. Family member is now in the room as well as RT. RR is in the high 20s. Course/Dx - Diagnoses Provider Diagnoses: COPD exacerbation The documentation as recorded by the Jodi cronin Thomas accurately reflects the service I personally performed and the decisions made by Shaun morrison Dong, MD.
[2017-06-24] MEDS: Famotidine TAB* 20 MG PO SCH ×2 (08:27→20:07)
[2017-06-24] MEDS: acetaZOLAMIDE TAB* 250 MG PO SCH (08:27)
--- NOTE | 2017-06-24 08:33 | HP ---
CC: YELENA Silverio* HISTORY AND PHYSICAL: DATE OF ADMISSION: 06/24/17 PRIMARY CARE PROVIDER: YELENA Silverio CHIEF COMPLAINT: Shortness of breath. HISTORY OF PRESENT ILLNESS: Ms. Sosa is a 56-year-old female who states that over the last few weeks she has been battling bronchitis. She states that she has completed 2 full courses of antibiotics (Augmentin and Levaquin), and a course of prednisone without any improvement in cough and sputum production. The patient has had shortness of breath; however, approximately 1 to 2 hours prior to arrival to [facility] ER at 2310 on 06/23/17, she developed sudden worsening of her shortness of breath. By report from EMS, the patient was audibly wheezing on their arrival. The patient received IV Decadron as well as DuoNeb and albuterol neb in the ambulance on the way here. The patient states that she has been having a significant cough and bringing up green yellow sputum. She denies any fever or chills. She does state that her mom has been sick with pneumonia recently. She complains of a sensation of chest heaviness, which is worse when she sits forward, but is present continuously. Overall, the patient is feeling improved since her arrival to the ER, though when she was attempted to be weaned off BiPAP, which was started in the ER, she did not tolerate this. PAST MEDICAL HISTORY: 1. COPD. 2. Hereditary ataxia. PAST SURGICAL HISTORY: 1. Right shoulder surgery. 2. Cyst removal from the throat. MEDICATIONS: 1. Symbicort 160/4.5 one puff inhaled b.i.d. 2. Diamox 500 mg p.o. daily. 3. Albuterol 2 puffs inhaled q. 4 hours p.r.n. shortness of breath. 4. Famotidine 20 mg p.o. b.i.d. 5. Spiriva Respimat 2 puffs inhaled b.i.d. 6. Albuterol neb 1 neb inhaled q.4 hours p.r.n. shortness of breath. ALLERGIES: ERYTHROMYCIN. FAMILY HISTORY: Mom is living. She has hypertension. Dad is at age of 48 of lung cancer. SOCIAL HISTORY: The patient is a former smoker. She quit approximately 3 years ago. She believes she smoked for 40 years, smoking 1 pack per day. She denies any alcohol use. She was working with [employer], but is no longer. She has a fiance. She has 2 children. She indicates that her mom Bisi and her fiance Fei will be her healthcare proxies. REVIEW OF SYSTEMS: The patient denies any fevers or chills or anorexia. She admits to the chest heaviness as above, cough and shortness of breath as above. She denies any nausea, vomiting, or abdominal pain. She does admit to diarrhea recently. She denies any hematochezia, no hematuria, no dysuria. No focal weakness or sensory loss. No sudden changes in vision. No dysphagia. No joint pains or muscle pains out of the ordinary. No rashes. No anxiety or depression. PHYSICAL EXAMINATION GENERAL: The patient is a well-developed, morbidly obese, middle-aged female, sitting in the stretcher, in no acute distress. VITAL SIGNS: Blood pressure 113/84, pulse 100, respirations 18, temp 98.6, O2 sat 98% on BiPAP with an FiO2 of 50%. HEENT: Pupils are equal, they are round, they react to light. Extraocular muscles are intact. Oropharynx is unable to be evaluated due to the BiPAP mask being in place. There is no submandibular, cervical or supraclavicular adenopathy. NECK: Thyroid is not enlarged. No thyroid nodules are noted. PULMONARY: Breath sounds are markedly diminished in all lung carolina. There are coarse crackles at the right base. The patient has moist cough with deep inspiration. CARDIAC: Normal S1, S2. Regular rate and rhythm. I do not appreciate any murmurs. There is 1+ bilateral lower extremity pitting edema. ABDOMEN: Bowel sounds are present. Abdomen is obese, soft, nontender, nondistended. MUSCULOSKELETAL: There is no cyanosis or clubbing of the digits. There is full active range of motion of all 4 extremities. SKIN: Warm and dry. There are no rashes. NEUROLOGIC: Cranial nerves II through XII are grossly intact. Sensation is intact to light touch throughout. Strength is 5/5 and symmetric in both upper and lower extremities bilaterally. PSYCH: The patient is alert. She is oriented x3. Affect appears appropriate. LABORATORY DATA/DIAGNOSTIC STUDIES: WBC 12.0, hemoglobin 15.0, hematocrit 44, platelets 199, INR 0.89. Sodium 138, potassium 4.0, chloride 109, CO2 20, BUN 15, creatinine 1.11, glucose 193, calcium 8.6, magnesium 1.9, bilirubin 0.9, AST 74, ALT 54, alk phos 93, troponin 0.01. BNP 10. Albumin 3.7. EKG reveals sinus tachycardia without any acute ST-T wave abnormalities. Chest x-ray - question some mild infiltrate at the bases. ASSESSMENT AND PLAN: Ms. Sosa is a 56-year-old female with a known history of chronic obstruction pulmonary disease, who presents to the emergency room with complaints of relatively sudden onset of worsened shortness of breath approximately 1 to 2 hours prior to presentation to the emergency room in the setting of being ill with what she was told was bronchitis over the last 3 week. 1. Chronic obstruction pulmonary disease exacerbation. At this point, the patient has stabilized on BiPAP. Her work of breathing was quite significant without the BiPAP. She will continue on the BiPAP in addition to being started on Solu-Medrol 40 mg IV q.12 hours, albuterol nebulizers q.4 hours while awake, and q. 2 hours p.r.n. and on inhaled steroid and Spiriva. As the patient has now failed 2 courses of oral antibiotics including Augmentin and Levaquin, I will go ahead and start cefepime and vancomycin. I am going to hold off on any further atypical coverage as she did complete a full course of Levaquin. I will send off for a sputum culture, urine for Legionella and Strep pneumoniae antigens. I suspect the patient will be able to be weaned from the BiPAP later today, but will still require more time to recover. The patient does state that she recently traveled to [place]. She does have swelling in her legs. Given the sudden onset of her worsened shortness of breath, I do feel it is warranted to check a D-dimer. If the D-dimer is positive, a CTA of the chest should be obtained. Additionally with the chest heaviness, a troponin is pending. The discomfort has been present for a prolonged period of time, making me less suspicious that it represents cardiac chest pain and is more likely related to her severe COPD exacerbation. 2. Elevated LFTs. The patient's AST and ALT are mildly elevated. It is unclear what this is related to. She has no gallbladder complaints. For now, we will get followup labs in the next 1 to 2 days. 3. Stage 3 chronic kidney disease. The patient's creatinine is essentially at baseline compared to her creatinine in June 2016. This can be followed intermittently. 4. Hyperglycemia. The patient is markedly hyperglycemic. However, she did receive steroids in the ambulance. A hemoglobin A1c, however, will be obtained. 5. Hereditary ataxia. The patient will continue on her usual dose of Diamox. 6. DVT prophylaxis. According to the Adult Thrombosis Prophylaxis Risk Factor Assessment Guide, the patient has a total risk factor score of 4, making her high risk. She will be placed on heparin 5000 units subcutaneous q. 8 hours. 7. The patient is a full code and again she indicates that her mom and her fiance would be her healthcare proxies. TIME SPENT: Sixty five minutes was spent admitting this patient. [id number]/[facility] #: [id number] MTDD
[2017-06-24] MEDS ORDERED: Tiotropium Respimt 2.5 mcg(NF) 1 PUFF MDI INH SCH (09:00)
[2017-06-24] MEDS ORDERED: Mometasone/Formoter 200/5 MDI INH SCH (09:00)
[2017-06-24] MEDS: Cefepime(*) 1 GM in NS 0.9% 50 ML* 50 ML IVPB SCH ×2 (09:43→20:07)
[2017-06-24] MEDS ORDERED: Spiriva Inhaler DEVICE* 1 EACH DEVICE SCH (12:00)
[2017-06-24] MEDS: Albuterol 2.5 MG/3 ML NEB.SOL* (0.083%) INH SCH (12:18)
[2017-06-24] MEDS: Heparin VIAL(*) 5000 UNITS/ML VIAL (FIVE THOUSAND) SUBCUT SCH ×2 (14:38→22:02)
--- NOTE | 2017-06-24 17:18 | PN ---
Hospitalist Progress Note Pt seen and examined. Improving in AM, off Bipap down to 2L. COPD exaccerbation. Continue Vanc and zosyn. Transfer to floor. Overnight pulse ox. [employer] Labourer is Dr. Rodriguez([place]). Ddimer was negative so no CTA. Steroids, nebs. Magnus Tapia MD
[2017-06-24] MEDS: Vancomycin(*) 1,250 MG IV IVPB SCH ×2 (17:47)
[2017-06-24] MEDS: Mometasone/Formoter 200/5 MDI INH SCH (20:22)
[2017-06-25] MEDS: NS 0.9% 1000 ML* 1,000 ML IV SCH (01:23)
[2017-06-25] MEDS: Vancomycin(*) 1,250 MG IV IVPB SCH ×2 (06:41)
[2017-06-25] MEDS: Heparin VIAL(*) 5000 UNITS/ML VIAL (FIVE THOUSAND) SUBCUT SCH ×2 (06:42→13:34)
[2017-06-25] MEDS ORDERED: NS 0.9% 250 ML* 250 ML ONE (08:02)
[2017-06-25] MEDS: methylPREDNISolone SOD 40 MG* 1 ML VIAL IV SCH (08:08)
[2017-06-25] MEDS: Cefepime(*) 1 GM in NS 0.9% 50 ML* 50 ML IVPB SCH (08:11)
[2017-06-25] MEDS: acetaZOLAMIDE TAB* 250 MG PO SCH (08:14)
[2017-06-25] MEDS: Famotidine TAB* 20 MG PO SCH (08:14)
[2017-06-25] MEDS ORDERED: Spiriva Inhaler DEVICE* 1 EACH DEVICE INH SCH (09:00)
[2017-06-25] MEDS ORDERED: Spiriva Inhaler DEVICE* 1 EACH DEVICE ONE (09:00)
[2017-06-25] MEDS ORDERED: Tiotropium CAP.INH* CAP.INH/18 MCG (USE ORDER SET !) INH SCH (09:00)
[2017-06-25] MEDS: Mometasone/Formoter 200/5 MDI INH SCH (10:23)
[2017-06-25 16:37] VITALS: BP 148/82
[2017-06-25] MEDS ORDERED: Influenza VAC *QUAD* 2017-18* 0.5 ML SYRINGE IM ONE (16:45)
[2017-06-26] MEDS ORDERED: Vancomycin Trough Check NOTE FOLLOW UP ONE (05:30)
--- NOTE | 2017-06-26 05:33 | DS ---
DISCHARGE SUMMARY: DATE OF ADMISSION: 06/24/17 DATE OF DISCHARGE: 06/25/17 PRIMARY CARE PROVIDER: YELENA Silverio PRIMARY SOFTWARE DEVELOPMENT ENGINEER: Dr. Palafox ([place]). CHIEF COMPLAINT: Shortness of breath. PRINCIPAL DIAGNOSES: 1. Chronic obstructive pulmonary disease exacerbation. 2. Pneumonia. HISTORY OF PRESENT ILLNESS AND HOSPITAL COURSE: Nicolle Sosa is a 56-year- old female with past medical history of COPD and hereditary ataxia, who has been battling bronchitis as an outpatient for the past few weeks. She completed 2 full courses of antibiotics, Augmentin and Levaquin respectively, and 2 courses of prednisone without any improvement in cough or sputum production. Her chief complaint was shortness of breath. She was noted by EMS to be audibly wheezing on arrival, she received IV Decadron and then DuoNebs, albuterol nebs in the ambulance, transported to the ICU. She denied any fever or chills. Her mother was sick with pneumonia recently and she initially complained of sensation of chest heaviness, which was worse when sitting forward. In the ER at [facility], she was attempted to be weaned off BiPAP, but did not initially tolerate this and, therefore, as mentioned transferred to the intensive care unit. A few hours later, she was off the BiPAP. She had been started on vancomycin and cefepime. Sputum cultures were drawn and Gram stain was positive for 4+ gram- positive cocci in clusters resembling Staph and 1+ gram-negative diplococci. Sputum culture is pending. She seemed to be requiring no oxygen support throughout the rest of hospital day #1 and hospital day #2. She had negative legionella urinary antigen and negative Streptococcus pneumoniae antigen. MRSA nares were negative. Vancomycin was stopped the morning of hospital day #2. Blood cultures were no growth to date for the first 24 hours. The patient was feeling much improved, was able to ambulate around the unit with saturations of 96% upon return. She is being discharged in improved condition with a course of prednisone taper 60 mg x4 days, 40 mg x4 days, and 20 mg x4 days along with 2 antibiotics, amoxicillin 1000 mg t.i.d., and doxycycline 100 mg twice a day. We will follow up her final sputum cultures and phone her if she needs to make any adjustments to this antibiotic regimen; otherwise, she will follow up with Dr. Rodríguez and Dr. Palafox. Of note, she did miss her scheduled pulmonary function tests at [facility] that were scheduled for 06/24/17. The patient had a chest x-ray, which demonstrated a small left basilar infiltrate on 06/23/17. DISCHARGE MEDICATIONS: Include: 1. Amoxicillin 500 mg capsules, 1000 mg p.o. t.i.d. for 7 days. 2. Doxycycline 100 mg b.i.d. for 7 days. 3. Famotidine 20 mg p.o. b.i.d. 4. Spiriva 2 puffs inhaled daily. 5. Symbicort 1 puff inhaled b.i.d. 6. Albuterol HFA inhaler 2 puffs inhaled q.4 hours p.r.n. 7. Albuterol 2.5 mg inhaled q.4 hours p.r.n. 8. Prednisone 20 mg tabs; 60 mg x4 days, 40 mg for 4 days, and 20 mg for 4 days. 9. Diamox (acetazolamide) 500 mg p.o. daily. DISCHARGE DIET: No restrictions, unchanged. ACTIVITY LEVEL: No restrictions. FOLLOWUP: Please follow up with Dr. Palafox and primary care provider, Danilo Rodríguez, within 3 to 5 days of discharge and reschedule pulmonary function tests when the patient is improved from her present illness. TIME SPENT: Time spent on discharge was 35 minutes. [id number]/[facility] #: [id number] [facility] CENTER[facility]lan
[2017-06-26] MEDS ORDERED: predniSONE TAB* 20 MG PO SCH (09:00)
== END 2017-06-25 17:05 | disposition home or self-care (01) | DRG 140 ==
LOC: ED 23:08 → ICU 06-24 05:50 → MEDTELE 06-24 12:07
PROVIDERS: ADMIT Hospitalist; ATTEND Internal Medicine
PROC: 5A09357 Assistance with Respiratory Ventilation, Less than 24 Consecutive Hours, Continuous Positive Airway Pressure (ICD-10-PCS; principal; 2017-06-24)
DX: J44.1 Chronic obstructive pulmonary disease with (acute) exacerbation (principal); J18.9 Pneumonia, unspecified organism; N18.3 Chronic kidney disease, stage 3 (moderate); G11.9 Hereditary ataxia, unspecified; J44.0 Chronic obstructive pulmonary disease with (acute) lower respiratory infection; E66.01 Morbid (severe) obesity due to excess calories; R94.5 Abnormal results of liver function studies; R73.9 Hyperglycemia, unspecified; G43.909 Migraine, unspecified, not intractable, without status migrainosus; Z79.52 Long term (current) use of systemic steroids; Z88.1 Allergy status to other antibiotic agents; Z82.49 Family history of ischemic heart disease and other diseases of the circulatory system; Z87.891 Personal history of nicotine dependence; Z83.3 Family history of diabetes mellitus
CPT/HCPCS: 36415; 71010; 80053; 83735; 83880; 84484; 85025; 85379; 85610; 87040; 87070; 87077; 87205; 87502; 87641; 87899; 90686; 93005; 94640; 94660; 94762; A9270-GY; J0692; J1644; J2060; J2920; J3370; J3475

== ENCOUNTER 2017-12-12 20:33 | Inpatient (IN) | payer OTHER ==
[2017-12-12] MEDS ORDERED: NS 0.9% 1000 ML*IV.FLUID IV ONE (21:05)
[2017-12-12] MEDS ORDERED: Azithromycin IV(*) 500 MG in NS 0.9% 250 ML* 250 ML IVPB ONE (21:05)
[2017-12-12] MEDS ORDERED: cefTRIAXone(*) 1 GM in NS 0.9% 50 ML* 50 ML IVPB ONE (21:05)
[2017-12-12] MEDS ORDERED: Acetaminophen TAB* 325 MG PO ONE (21:13)
[2017-12-12] MEDS ORDERED: Albuterol 2.5 MG/3 ML NEB.SOL* (0.083%) INH ONE (21:14)
[2017-12-12 21:43] LABS: Hematocrit 41 % (35-47); Hemoglobin 13.7 g/dl (12.0-16.0); Mean Corpuscular HGB Conc 33 g/dl (31-36); Mean Corpuscular Hemoglobin 30 pg (27-31); Mean Corpuscular Volume 90 fL (80-97); Mean Platelet Volume 8.2 um3 (7.4-10.4); Platelet Count 286 10^3/ul (150-450); Red Blood Count 4.62 10^6/ul (4.0-5.4); Red Cell Distribution Width 16 % (10.5-15); White Blood Count 25.3 10^3/ul (3.5-10.8)
[2017-12-12 21:52] LABS: INR 1.94 (0.77-1.02)
[2017-12-12 22:02] LABS: EGFR Non-African American 68.7 (>60)
[2017-12-12 22:20] LABS: ABS Basophils 0.1 10^3/ul (0-0.2); ABS Eosinophils 0 10^3/ul (0-0.6); ABS Lymphocytes 1.4 10^3/ul (1.0-4.8); ABS Monocytes 1.6 10^3/ul (0-0.8); ABS Neutrophils 22.2 10^3/ul (1.5-7.7); ABS Nucleated RBC 0 10^3/ul; Eosinophil % 0 % (0-6); Lymphocyte % 5.4 % (25-47); Nucleated Red Blood Cells % 0
[2017-12-12] MEDS ORDERED: Albuterol 2.5 MG/3 ML NEB.SOL* (0.083%) INH PRN (22:42)
[2017-12-12] MEDS ORDERED: Ondansetron INJ* 2 MG/ML VIAL IV PRN (22:42)
[2017-12-12] MEDS ORDERED: methylPREDNISolone 125 MG* 2 ML VIAL IV ONE (22:45)
--- NOTE | 2017-12-12 22:50 | RAD ---
INDICATION: Tachycardia and hypoxia COMPARISON: Most recent comparison chest x-rays dated June 23, 2017 TECHNIQUE: Single AP portable view of the chest was obtained. FINDINGS: Image quality is compromised due to the relative inferiority of a portable chest x-ray. The heart and mediastinum exhibit normal size and contour. The lungs are grossly clear. There is no evidence of a large pleural effusion. Visualized bones are normal for the patient's age. IMPRESSION: No radiographic evidence for acute cardiopulmonary abnormality on this portable chest x-ray.
[2017-12-12] MEDS ORDERED: methylPREDNISolone 125 MG* 2 ML VIAL IV SCH (23:00)
[2017-12-12] MEDS: NS 0.9% 1000 ML* 1,000 ML IV SCH (23:41)
[2017-12-12] MEDS: Albuterol/Ipratropium NEB.SOL* Albuterol 2.5 MG/Ipratropium 0.5 MG 3 ML INH SCH (23:57)
--- NOTE | 2017-12-13 00:27 | ED ---
Gilson Sung Gabriel, scribed for Maame Vela MD on 12/12/17 at 2112 . Shortness of Breath - HPI Summary HPI Summary: This patient is a 56 year old F with hx COPD and PE on Xarelto BIBA to [facility] accompanied by her fianc with a chief complaint of SOB since "June 2017", worse today. 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 The patient rates the pain 0/10 in severity. Symptoms aggravated by movement. Symptoms alleviated by duoneb, EMS Tx. Patient reports fever. Patient denies CP. She has a home nebs and was also given duoneb by EMS with improvement, but she remains SOB. She is not on O2 at home. Pt states she has been sick since June 2017 and has been in the hospital twice since and multiple courses of antibiotics. 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 Pt takes Xarelto chronically. Hx COPD, PE, and heredtary ataxia. Pt just finished an antibiotic for pneumonia but does not know what it was, or when exactly she took it and finished it. Upon initial evaluation pt has temp 102.9 , is tachycardic 132, and tachypneic 22, and hypoxic O2 sat 93 on 5 liters NC. - History of Current Complaint Chief Complaint: EDShortnessOfBreath Hx Obtained From: Patient, Family/Couturiere - fiance, EMS Onset/Duration: Gradual Onset, Still Present, Worse Since - today Timing: Constant Current Severity: Severe Dyspnea At: Rest Aggrevating Factors: Movement Alleviating Factors: EMS Tx - improved, not resolved, Oxygen Associated Signs & Symptoms: Negative - CP, Fever Related History: Obesity - Risk Factors Pulmonary Embolism: Previous PE - Allergy/Home Medications Allergies/Adverse Reactions: Allergies Allergy/AdvReac Type Severity Reaction Status Date / Time erythromycin base Allergy Facial Verified 12/12/17 20:56 Redness/Flushing Home Medications: Home Medications Cetirizine* [ZyrTEC 10 MG TAB*] 10 mg PO DAILY 12/12/17 [History Confirmed 12/12] Montelukast Sodium TAB* [Singulair TAB*] 10 mg PO BEDTIME 12/12/17 [History Confirmed 12/12/17] Oxybutynin Chloride [Oxybutynin Chloride ER] 10 mg PO BID 12/12/17 [History Confirmed 12/12/17] Rivaroxaban TAB(*) [Xarelto 20 mg] 20 mg PO DAILY 12/12/17 [History Confirmed ] PMH/Surg Hx/FS Hx/Imm Hx Endocrine/Hematology History: Denies: Hx Anticoagulant Therapy, Hx Diabetes, Hx Thyroid Disease Cardiovascular History: Denies: Hx Congestive Heart Failure, Hx Deep Vein Thrombosis, Hx Hypertension , Hx Myocardial Infarction, Hx Pacemaker/ICD Respiratory History: Reports: Hx Chronic Obstructive Pulmonary Disease (COPD), Hx Pulmonary Embolism - on Xarelto Denies: Hx Lung Cancer GI History: Reports: Hx Hiatal Hernia Denies: Hx Gall Bladder Disease, Hx Gastrointestinal Bleed, Hx Ulcer, Hx Urosepsis History: Denies: Hx Acute Renal Failure, Hx Kidney Stones, Hx Renal Disease Sensory History: Reports: Hx Contacts or Glasses - Reading, Hx Glaucoma - ?? Denies: Hx Hearing Aid Opthamlomology History: Reports: Hx Contacts or Glasses - Reading, Hx Glaucoma - ?? Neurological History: Reports: Hx Migraine, Other Neuro Impairments/Disorders - hereditary ataxia Denies: Hx Dementia, Hx Seizures, Hx Transient Ischemic Attacks (TIA) Psychiatric History: Denies: Hx Anxiety, Hx Depression, Hx Panic Disorder, Hx Schizophrenia, Hx Bipolar Disorder - Cancer History Hx Chemotherapy: No Hx Radiation Therapy: No - Surgical History Surgery Procedure, Year, and Place: 1988 CYST REMOVED FROM NECK, [facility]. 10/2014 RIGHT SHOULDER SURGERIES X 2, [facility] Hx Anesthesia Reactions: No Infectious Disease History: No Infectious Disease History: Denies: Hx Clostridium Difficile, Hx Hepatitis, Hx Human Immunodeficiency Virus (HIV), Hx of Known/Suspected MRSA, Hx Shingles, Hx Tuberculosis, Hx Known/ Suspected VRE, Hx Known/Suspected VRSA, History Other Infectious Disease, Traveled Outside the [place] in Last 30 Days - Family History Known Family History: Positive: Diabetes, Other - FHx is negative for DVT Negative: Cardiac Disease, Hypertension, Seizure Disorder Family History: FHx of CA - Social History Lives: With Family Alcohol Use: None Substance Use Type: Reports: None Hx Tobacco Use: Yes Smoking Status (MU): Former Smoker Type: Cigarettes Amount Used/How Often: 1 PPD X 25 YEARS. Quit in 2013 Length of Time of Smoking/Using Tobacco: QUIT 2013 Have You Smoked in the Last Year: No Review of Systems Positive: Fever, Fatigue Negative: Chest Pain Positive: Shortness Of Breath, Cough Gastrointestinal: Negative Genitourinary: Negative Neurological: Other - dizziness, unsteady gait, and slurred speech, manifestations of her usual hereditary ataxia, resolved now Psychological: Normal All Other Systems Reviewed And Are Negative: Yes Physical Exam - Summary Physical Exam Summary: Appearance: Ill-appearing, no pain distress, Obese, oxygen in place, dyspneic at rest Skin: Warm, color reflects adequate perfusion Head: Normal Head/Face inspection Eyes: Conjunctiva clear ENT: Normal inspection Neck: Supple, no nodes, no JVD. Respiratory: tachypnea, able to speak short sentences in bursts, expiratory wheezes throughout all lung [place] bilaterally Cardio: RRR, No murmur, pulses normal, brisk capillary refill Abdomen: soft, nontender Bowel sounds: present Musculoskeletal: Strength Intact/ ROM intact. No calf tenderness. No edema. Psychological: Normal Neuro: Alert, muscle tone normal, moves all extremities well, no focal deficit Triage Information Reviewed: Yes Vital Signs On Initial Exam: Initial Vitals Temp Pulse Resp BP Pulse Ox 102.9 F 132 22 124/66 93 12/12/17 20:40 12/12/17 20:40 12/12/17 20:40 12/12/17 20:40 12/12/17 20:40 Vital Signs Reviewed: Yes Diagnostics - Vital Signs Vital Signs Temp Pulse Resp BP Pulse Ox 12/12/17 20:40 102.9 F 132 22 124/66 93 - Laboratory Result Diagrams: 12/16/17 09:24 12/16/17 09:24 Lab Statement: Any lab studies that have been ordered have been reviewed, and results considered in the medical decision making process. - Radiology CXR Radiology Interpretation Completed By: ED Physician - COPD no definite infiltrate - EKG 2117 Cardiac Rate: Tachycardia EKG Rhythm: Sinus Tachycardia - at 122 BPM EKG Interpretation: nml AVIVCT, nml QTc, and nml axis, axis -1 EKG Comparison: No Significant Change - compared to 06/23/17 Re-Evaluation - Re-Evaluation First Eval Re-Evaluation Time: 21:11 Change: Unchanged Comment: Sepsis protocol initiated. Second Eval Re-Evaluation Time: 22:02 Change: Unchanged Comment: I discussed admission with the patient and answered all questions. Pt still appears ill and is tachycardic at 122BPM. Course/Dx - Course Course Of Treatment: 56 yo F with hx COPD, PE on Xarelto, under the care of pace analyst at [facility] with acute dyspnea at rest, worsening of chronic dsypnea, and chronic respiratory infections since Jun 2017. Pt met SIRS criteria upon presentation so sepsis protocol was initiated with 30cc/kg IV fluids and IV antibiotics were given for respiratory source. Pt received nebs in addition to EMS nebs, and pt was admitted to hospitalist. Assessment/Plan: An EKG reveals sinuc tachycardia, nml AVIVCT, nml QTc, and nml axis, axis -1. CXR reveals, COPD no definite infiltrate. Test results with abnormalities of WBC of 25, ABG pO2 of 64 on 5 L oxygen, pH 7.29, pCO2 39. In the ED course the patient was given Tylenol, albuterol neb, oxygen, and IV fluids per sepsis protocol. IV antibiotics per Dr. Barth. We discussed patient care with Dr. Barth and he accepted the patient for admission. Patient will be admitted. The patient is agreeable with this plan. - Diagnoses Differential Diagnosis/HQI/PQRI: Positive: COPD Exacerbation, Pneumonia, Pulmonary Embolism, Pulmonary Edema Provider Diagnoses: COPD exacerbation, PNA (pneumonia), Sepsis, Hypoxia, Hereditary ataxia, History of pulmonary embolism, Acute respiratory failure with hypoxemia - Physician Notifications Discussed Care of Patient With: Fabian Barth Time Discussed With Above Provider: 22:03 Instructed by Provider To: Admit As Inpatient - Critical Care Time Critical Care Time: 30-74 min - 30 minutes Discharge - Sign-Out/Discharge Documenting (check all that apply): Discharge - Discharge Plan Condition: Stable Disposition: ADMITTED TO [facility] - Billing Disposition and Condition Condition: STABLE Disposition: [facility] The documentation as recorded by the Gilson cronin Gabriel accurately reflects the service I personally performed and the decisions made by me, Maame Vela MD.
--- NOTE | 2017-12-13 01:07 | HP ---
CC: YELENA Silverio * HISTORY AND PHYSICAL: DATE OF ADMISSION: 12/12/17 CHIEF COMPLAINT: 1. Cough. 2. Shortness of breath. 3. Not feeling well. 4. Fever. PRIMARY CARE PROVIDER: YELENA Silverio ATTENDING PHYSICIAN WHILE IN THE HOSPITAL: Dr. Fabian Barth * (report dictated by Lucien Alcantar NP) HISTORY OF PRESENT ILLNESS: Mrs. Sosa is a 56-year-old female patient. She has a history of COPD; history of PE, on chronic Xarelto; also has a history of hereditary ataxia. She comes into our ER today. She says that she has been fighting colds off and on really since June. She has been on several rounds of antibiotics. She has been following with Dr. Palafox, her manager social responsibility at [facility]. She says that she was feeling well at the end of last month. She did have a course of antibiotics in the form of Augmentin. She says that she was on that for 2 to 3 weeks, wanted to get records from Dr. Palafox's office and apparently that was prescribed by the manager social responsibility. She has been off the antibiotics for a couple of weeks, not been feeling well; however over the last couple of days, she started noticing again she was coughing. She is getting more short of breath particularly with exertion. She noted that she today felt very weak, tired, fatigued. She said she felt warm. She just wanted to lie down all day. She was tired. She was going to go to the diner and have breakfast with her sister. She just did not feel up to it. She sat in the car , she drove home and basically slept off. She did not eat. She had no appetite. She just was not feeling well. She said she was feeling run down. She still was having a cough. It was productive of a green yellow type sputum. She said she felt short of breath particularly with exertion and she said this had been getting worse over the last several days. She came into the ER today. She was noted to have a fever of 102. She was noted to have elevated white count. She was noted to be tachycardic. She denied any chest pain, denied having any leg or calf pain. Denied having any abdominal discomfort and there has been no nausea, vomiting, diarrhea, or any chest discomfort. She came into the ED, was evaluated. There was concern because of the sepsis picture and we were asked to evaluate for admission. PAST MEDICAL HISTORY: Significant for: 1. COPD. 2. PE. 3. Ataxia. PAST SURGICAL HISTORY: 1. The patient has had a right shoulder surgery. 2. She has had cyst removed from her neck. HOME MEDICATIONS: Include: 1. Xarelto 20 mg daily. 2. Spiriva 2 puffs inhaled daily. 3. Symbicort 1 puff inhaled b.i.d. 4. Ventolin 2 puffs inhaled every 4 hours as needed. 5. Ventolin neb 2.5 mg inhaled every 4 hours. 6. Diamox 250 mg p.o. b.i.d. 7. Singulair 10 mg daily. 8. Oxybutynin 10 mg p.o. b.i.d. 9. Famotidine 20 mg p.o. b.i.d. 10. Zyrtec 10 mg p.o. daily. ALLERGIES TO MEDICATIONS: Include ERYTHROMYCIN. FAMILY HISTORY: Mother had a history of hypertension. Father had a history of lung cancer. SOCIAL HISTORY: She is a pack a day smoker. She does not smoke any more. She quit several years ago. She does not drink alcohol. Surrogate decision maker is her fiance. REVIEW OF SYSTEMS: There is a documented fever here. She denied having any significant weight change. There is no double vision. She denies having any ear discharge. She denied having any rhinorrhea. No sore throat. No thyroid enlargement. She denies having any chest pain. She does admit to having a cough. She does admit to having shortness of breath particularly with exertion, but there was no orthopnea, no nocturnal dyspnea. There was no abdominal pain. There was no nausea, no vomiting, no dysuria, and there was no frequency. No seizure, no loss of consciousness, no pruritus, and no skin ulcerations. Review of 14 systems completed, all others negative. PHYSICAL EXAMINATION GENERAL: At this time, Mrs. Sosa is a 56-year-old female patient. She is sitting in the ED stretcher. She does not appear to be in any acute distress. VITAL SIGNS: Blood pressure 127/74, pulse 119, respirations were 26, O2 sat 95% , and temperature initially was 102.9, it is now 98.6. HEENT: Head atraumatic, normocephalic. Eyes: EOMs intact. Sclerae were anicteric and not pale. Throat: Oral mucosa appears to be dry. No oropharyngeal erythema. NECK: Supple. LUNGS: She had wheezing noted bilaterally, it was expiratory particularly in the lower lobe. She did have some crackles in the left lower lobe. She had equal diaphragmatic expansion. HEART: Sounds S1 and S2. Regular rate and rhythm. She is tachycardic. ABDOMEN: Soft, flat, and nontender. Bowel sounds were present. EXTREMITIES: Pulses were 2+ throughout. She was able to remove all 4 extremities with 5/5 strength. NEUROLOGIC: The patient is awake and alert. She is oriented x3. Water Service Dispatcher are equal, tongue midline. She had no gross focal deficits. The skin is grossly intact. LABORATORY DATA: Today revealed a WBC of 25.3, RBC of 4.62, hemoglobin of 13.7 , hematocrit 41, and platelet count of 286. The INR was 1.94. PTT of 40.4, D- dimer less than 200. Blood gas, pH is 7.29, PCO2 of 39, bicarb of 19. Chemistries were sodium of 138, potassium 3.7, chloride of 110, bicarb of 19, BUN 15, creatinine of 0.85, glucose 159, lactic 0.8, calcium 8.7, total bili 0.7 , AST 11, ALT 12, alk phos 83, CK 124, troponin 0.04, CRP of 128, BMP of 636, albumin of 3.7. Serology was negative for flu. She did have a chest x-ray obtained today. Radiology read this as no acute cardiopulmonary disease. EKG shows sinus tachycardia, rate of 122 with a PVC. No ST elevation or T-wave inversions. There was a previous EKG from 2017, which showed sinus tachycardia , rate of 101 at that point and EKGs do appear to be similar. Old medical records were reviewed. ASSESSMENT AND PLAN: Mrs. Sosa is a 56-year-old female patient coming into the ED today with complaints of cough, shortness of breath progressively getting worse over the last few days. On evaluation today, she was found to have sepsis. The patient was evaluated in the ED, it was noted that she did have what appeared to be sepsis. The patient was evaluated in the ED. She was treated with the appropriate bolus. Blood cultures were sent; but because of the sepsis picture, we were asked to evaluate. She will be admitted under inpatient status for: 1. Sepsis. I suspect this is secondary to a chronic obstructive pulmonary disease exacerbation, possibly early pneumonia or bronchitis. My plan would be to go ahead. Again, she did get the appropriate IV bolus here in the ED 30 cc per kg. I would go ahead and continue normal saline at 125 an hour after the boluses. We will go ahead and put her on nebs every 4 hours. In addition to this, Dulera, pulmonary toileting, try to get a Legionella antigen, strep pneumo antigen. Get a urine culture and urinalysis. She is not having abdominal pain. I think the source is respiratory. I will put her on Rocephin and azithromycin and I will start her on steroid therapy. We will continue to follow her closely and continue with aggressive pulmonary toileting. 2. Chronic obstructive pulmonary disease with exacerbation. We will go ahead and put her on nebs, will go ahead and put the patient on antibiotics, inhaled steroids and IV steroids and continue to follow. 3. Hereditary ataxia. Continue with supportive care. I am holding her Diamox. We could continue that after the acute illness, but I want to keep her hydrated. 4. History of pulmonary embolism. We will go ahead and continue her Xarelto. 5. Code status. Full code. 6. Fluids, electrolytes, and nutrition. She can have a regular diet. 7. Indeterminate troponins probably to the secondary to the chronic obstructive pulmonary disease exacerbation and tachycardia. We will trend these and continue to follow. TIME SPENT: Time spent on the admission was approximately 60 minutes, greater than half that time was spent [id number] with the patient obtaining my history and physical, other half the time spent going over the plan of care with the patient and implementing the plan of care. I did discuss the plan of care with my attending, Dr. Barth, who is in agreement. LUCIEN ALCANTAR NP [id number]/[facility] #: [id number] LIUDMILA
[2017-12-13] MEDS ORDERED: methylPREDNISolone SOD 40 MG* 1 ML VIAL ONE (01:49)
[2017-12-13] MEDS ORDERED: methylPREDNISolone 125 MG* 2 ML VIAL ONE (01:52)
[2017-12-13] MEDS: Albuterol/Ipratropium NEB.SOL* Albuterol 2.5 MG/Ipratropium 0.5 MG 3 ML INH SCH ×4 (02:53→19:49)
[2017-12-13 06:21] LABS: Hematocrit 40 % (35-47); Hemoglobin 13.2 g/dl (12.0-16.0); Mean Corpuscular HGB Conc 33 g/dl (31-36); Mean Corpuscular Hemoglobin 30 pg (27-31); Mean Corpuscular Volume 90 fL (80-97); Mean Platelet Volume 8.3 um3 (7.4-10.4); Platelet Count 266 10^3/ul (150-450); Red Blood Count 4.43 10^6/ul (4.0-5.4); Red Cell Distribution Width 16 % (10.5-15); White Blood Count 22.3 10^3/ul (3.5-10.8)
[2017-12-13 06:27] LABS: INR 1.43 (0.77-1.02)
[2017-12-13 06:29] LABS: ABS Basophils 0.1 10^3/ul (0-0.2); ABS Eosinophils 0 10^3/ul (0-0.6); ABS Lymphocytes 0.7 10^3/ul (1.0-4.8); ABS Monocytes 0.3 10^3/ul (0-0.8); ABS Neutrophils 21.2 10^3/ul (1.5-7.7); ABS Nucleated RBC 0 10^3/ul; Eosinophil % 0 % (0-6); Nucleated Red Blood Cells % 0
[2017-12-13 06:51] LABS: EGFR Non-African American 83.2 (>60)
[2017-12-13] MEDS ORDERED: methylPREDNISolone 125 MG* 2 ML VIAL IV SCH (09:00)
[2017-12-13] MEDS: Rivaroxaban TAB(*) 20 MG TAB PO SCH (09:08)
[2017-12-13] MEDS: Famotidine TAB* 20 MG PO SCH ×2 (09:08→21:25)
[2017-12-13] MEDS: Cetirizine* 10 MG TAB PO SCH (09:08)
[2017-12-13] MEDS: Oxybutynin TAB* 5 MG PO SCH ×2 (09:08→21:25)
[2017-12-13] MEDS: Acetaminophen TAB* 325 MG PO PRN (09:20)
[2017-12-13] MEDS: NS 0.9% 1000 ML* 1,000 ML IV SCH (10:49)
[2017-12-13 11:40] LABS: Urine Appearance Clear; Urine Blood 1+ (Negative); Urine Color Yellow; Urine Ketones Trace (Negative); Urine Protein Negative (Negative); Urine Specific Gravity 1.027 (1.010-1.030); Urine Urobilinogen Negative (Negative)
--- NOTE | 2017-12-13 14:22 | PN ---
Subjective Date of Service: 12/13/17 Interval History: Small amt green-yellow sputum. Somewhat less SOB today. Objective Active Medications: Acetaminophen (Tylenol Tab*) 650 mg PO Q4H PRN PRN Reason: FEVER/PAIN Last Admin: 12/13/17 09:20 Dose: 650 mg Albuterol (Ventolin 2.5 Mg/3 Ml Neb.Juanita*) 2.5 mg INH Q2H PRN PRN Reason: SOB/WHEEZING Albuterol/Ipratropium (Duoneb (Albuterol 2.5 Mg/Ipratropium 0.5 Mg)) 1 neb INH [id number] AWAKE [facility] Last Admin: 12/13/17 13:25 Dose: 1 neb Cetirizine HCl (Zyrtec*) 10 mg PO DAILY [facility] PRN Reason: Protocol Last Admin: 12/13/17 09:08 Dose: 10 mg Famotidine (Pepcid Tab*) 20 mg PO BID [facility] Last Admin: 12/13/17 09:08 Dose: 20 mg Azithromycin 500 mg/ Sodium (Chloride) 250 mls @ 250 mls/hr IVPB Q24H [facility] Sodium Chloride (Ns 0.9% 1000 Ml*) 1,000 mls @ 100 mls/hr IV PER RATE [facility] Stop: 12/14/17 08:44 Last Admin: 12/13/17 10:49 Dose: 100 mls/hr Ceftriaxone Sodium 1 gm/ (Sodium Chloride) 50 mls @ 200 mls/hr IVPB Q24H [facility] Mometasone Furoate/Formoterol Fumar (Dulera 200/5 Mdi*) 2 puff INH BID [facility] Montelukast Sodium (Singulair Tab*) 10 mg PO BEDTIME [facility] Ondansetron HCl (Zofran Inj*) 4 mg IV Q6H PRN PRN Reason: NAUSEA Oxybutynin Chloride (Ditropan Tab*) 10 mg PO BID [facility] Last Admin: 12/13/17 09:08 Dose: 10 mg Prednisone (Deltasone Tab*) 60 mg PO DAILY [facility] Rivaroxaban (Xarelto(*)) 20 mg PO DAILY [facility] Last Admin: 12/13/17 09:08 Dose: 20 mg Vital Signs - 8 hr 12/13/17 12/13/17 12/13/17 08:08 08:32 09:09 Temperature 97.5 F Pulse Rate 108 96 Respiratory 26 18 18 Rate Blood Pressure 141/62 (mmHg) O2 Sat by Pulse 91 93 Oximetry 12/13/17 12/13/17 12/13/17 11:03 11:07 13:28 Temperature 97.7 F Pulse Rate 100 93 97 Respiratory 15 96 18 Rate Blood Pressure 121/62 (mmHg) O2 Sat by Pulse 93 18 94 Oximetry Oxygen Devices in Use Now: Nasal Cannula Appearance: Alert, sitting on the edge of her bed. In fair spirits. Looks comfortable. Eyes: No Scleral Icterus Neck: NL Appearance and Movements; NL JVP, No Thyroid Enlargement, Masses Respiratory: Symmetrical Chest Expansion and Respiratory Effort, Clear to Percussion, - - diminished BS BL. Extremities: No Edema, No Clubbing, Cyanosis, - Skin: No Rash or Ulcers, No Nodules or Sclerosis, - Neurological: Alert and Oriented x 3, NL Sensation Result Diagrams: 12/13/17 06:06 12/13/17 06:06 Microbiology and Other Data: Microbiology 12/13/17 11:05 Legionella Urinary Antigen - Final Urine Negative Legionella Antigen Streptococcus pneumoniae Ag Screen - Final Negative S. pneumo Antigen 12/13/17 01:00 Gram Stain - Final Sputum Assess/Plan/Problems-Billing Assessment: - Patient Problems (1) COPD exacerbation Current Visit: No Status: Acute Code(s): J44.1 - CHRONIC OBSTRUCTIVE PULMONARY DISEASE W (ACUTE) EXACERBATION SNOMED Code(s): 124869283863323 Comment: Improving. Add guaifenesin XR. Start prednisone taper 12/14. Continue azithromycin and ceftriaxone. (2) Hereditary ataxia Current Visit: No Status: Acute Code(s): G11.9 - HEREDITARY ATAXIA, UNSPECIFIED SNOMED Code(s): 91942080 Comment: Resume acetazolamide. (3) History of pulmonary embolism Current Visit: Yes Status: Acute Code(s): Z86.711 - PERSONAL HISTORY OF PULMONARY EMBOLISM SNOMED Code(s): 306793914 Comment: Continue rivaroxaban.
[2017-12-13] MEDS: guaiFENesin ER TAB 600 MG PO SCH ×2 (14:30→21:25)
[2017-12-13] MEDS: Mometasone/Formoter 200/5 MDI INH SCH ×2 (19:50→21:02)
[2017-12-13] MEDS: Montelukast Sodium TAB* 10 MG PO SCH (21:25)
[2017-12-13] MEDS: acetaZOLAMIDE TAB* 250 MG PO SCH (21:25)
[2017-12-13] MEDS: cefTRIAXone(*) 1 GM in NS 0.9% 50 ML* 50 ML IVPB SCH (21:25)
[2017-12-13] MEDS: Azithromycin IV(*) 500 MG in NS 0.9% 250 ML* 250 ML IVPB SCH (22:03)
[2017-12-14] MEDS: Albuterol/Ipratropium NEB.SOL* Albuterol 2.5 MG/Ipratropium 0.5 MG 3 ML INH SCH ×4 (01:04→19:00)
[2017-12-14] MEDS: Mometasone/Formoter 200/5 MDI INH SCH ×2 (07:26→19:00)
[2017-12-14] MEDS: Famotidine TAB* 20 MG PO SCH ×2 (07:56→20:36)
[2017-12-14] MEDS: Cetirizine* 10 MG TAB PO SCH (07:56)
[2017-12-14] MEDS: Rivaroxaban TAB(*) 20 MG TAB PO SCH (07:56)
[2017-12-14] MEDS: Oxybutynin TAB* 5 MG PO SCH ×2 (07:56→20:36)
[2017-12-14] MEDS: acetaZOLAMIDE TAB* 250 MG PO SCH ×2 (07:56→20:38)
[2017-12-14] MEDS: guaiFENesin ER TAB 600 MG PO SCH ×2 (07:56→20:36)
[2017-12-14] MEDS ORDERED: predniSONE TAB* 20 MG PO SCH (09:00)
--- NOTE | 2017-12-14 14:17 | PN ---
Subjective Date of Service: 12/14/17 Interval History: Subj somewhat better. Very anxious. Little cough. ACOSTA, as when walks to the BR. Objective Active Medications: Acetaminophen (Tylenol Tab*) 650 mg PO Q4H PRN PRN Reason: FEVER/PAIN Last Admin: 12/13/17 09:20 Dose: 650 mg Acetazolamide (Diamox Tab*) 250 mg PO BID [facility] Last Admin: 12/14/17 07:56 Dose: 250 mg Albuterol (Ventolin 2.5 Mg/3 Ml Neb.Juanita*) 2.5 mg INH Q2H PRN PRN Reason: SOB/WHEEZING Albuterol/Ipratropium (Duoneb (Albuterol 2.5 Mg/Ipratropium 0.5 Mg)) 1 neb INH [id number] AWAKE [facility] Last Admin: 12/14/17 13:15 Dose: 1 neb Cetirizine HCl (Zyrtec*) 10 mg PO DAILY [facility] PRN Reason: Protocol Last Admin: 12/14/17 07:56 Dose: 10 mg Famotidine (Pepcid Tab*) 20 mg PO BID [facility] Last Admin: 12/14/17 07:56 Dose: 20 mg Guaifenesin (Mucinex*) 600 mg PO BID [facility] Last Admin: 12/14/17 07:56 Dose: 600 mg Azithromycin 500 mg/ Sodium (Chloride) 250 mls @ 250 mls/hr IVPB Q24H [facility] Last Admin: 12/13/17 22:03 Dose: 250 mls/hr Ceftriaxone Sodium 1 gm/ (Sodium Chloride) 50 mls @ 200 mls/hr IVPB Q24H [facility] Last Admin: 12/13/17 21:25 Dose: 200 mls/hr Mometasone Furoate/Formoterol Fumar (Dulera 200/5 Mdi*) 2 puff INH BID [facility] Last Admin: 12/14/17 07:26 Dose: 2 puff Montelukast Sodium (Singulair Tab*) 10 mg PO BEDTIME [facility] Last Admin: 12/13/17 21:25 Dose: 10 mg Ondansetron HCl (Zofran Inj*) 4 mg IV Q6H PRN PRN Reason: NAUSEA Last Admin: 12/13/17 23:28 Dose: 4 mg Oxybutynin Chloride (Ditropan Tab*) 10 mg PO BID [facility] Last Admin: 12/14/17 07:56 Dose: 10 mg Prednisone (Deltasone Tab*) 50 mg PO DAILY [facility] Rivaroxaban (Xarelto(*)) 20 mg PO DAILY [facility] Last Admin: 12/14/17 07:56 Dose: 20 mg Vital Signs - 8 hr 12/14/17 12/14/17 12/14/17 07:14 07:27 08:00 Temperature 97.8 F Pulse Rate 82 95 Respiratory 18 20 16 Rate Blood Pressure 113/66 (mmHg) O2 Sat by Pulse 93 91 91 Oximetry 12/14/17 12/14/17 11:19 13:17 Temperature 97.8 F Pulse Rate 80 91 Respiratory 19 16 Rate Blood Pressure 131/66 (mmHg) O2 Sat by Pulse 96 94 Oximetry Oxygen Devices in Use Now: Nasal Cannula Appearance: In a chair. In fair spirits but worried and anxious. Otherwise looks comfortable. Eyes: No Scleral Icterus Respiratory: Symmetrical Chest Expansion and Respiratory Effort, Clear to Percussion, - - diminished BS BL Cardiovascular: NL Sounds; No Murmurs; No JVD, RRR, No Edema, - Extremities: No Edema, No Clubbing, Cyanosis, - Skin: No Rash or Ulcers, No Nodules or Sclerosis Neurological: Alert and Oriented x 3, NL Sensation Result Diagrams: 12/13/17 06:06 12/13/17 06:06 Microbiology and Other Data: Microbiology 12/13/17 11:05 Legionella Urinary Antigen - Final Urine Negative Legionella Antigen Streptococcus pneumoniae Ag Screen - Final Negative S. pneumo Antigen 12/13/17 01:00 Gram Stain - Final Sputum Assess/Plan/Problems-Billing Assessment: - Patient Problems (1) COPD exacerbation Current Visit: No Status: Acute Code(s): J44.1 - CHRONIC OBSTRUCTIVE PULMONARY DISEASE W (ACUTE) EXACERBATION SNOMED Code(s): 329278919526322 Comment: Improving. Add guaifenesin XR. Continue prednisone taper. Continue azithromycin and ceftriaxone. (2) Hereditary ataxia Current Visit: No Status: Acute Code(s): G11.9 - HEREDITARY ATAXIA, UNSPECIFIED SNOMED Code(s): 21477387 Comment: Resume acetazolamide. (3) History of pulmonary embolism Current Visit: Yes Status: Acute Code(s): Z86.711 - PERSONAL HISTORY OF PULMONARY EMBOLISM SNOMED Code(s): 479292514 Comment: Continue rivaroxaban. (4) SIRS (systemic inflammatory response syndrome) Current Visit: Yes Status: Acute Code(s): R65.10 - SIRS OF NON-INFECTIOUS ORIGIN W/O ACUTE ORGAN DYSFUNCTION SNOMED Code(s): 798153471 Comment: Fever down, resolved. (5) Metabolic acidosis Current Visit: Yes Status: Acute Code(s): E87.2 - ACIDOSIS SNOMED Code(s) : 52931759 Comment: Due to acetazolamide. (6) Acute respiratory failure with hypoxemia Current Visit: Yes Status: Acute Code(s): J96.01 - ACUTE RESPIRATORY FAILURE WITH HYPOXIA SNOMED Code(s): 231014403 (7) Acute respiratory failure with hypoxia Current Visit: Yes Status: Acute Code(s): J96.01 - ACUTE RESPIRATORY FAILURE WITH HYPOXIA SNOMED Code(s): 95380996 Comment: Initial ABG showed po2 of 64 on FIO2 of 0.4. Improved.
[2017-12-14] MEDS: Acetaminophen TAB* 325 MG PO PRN (20:35)
[2017-12-14] MEDS: Montelukast Sodium TAB* 10 MG PO SCH (20:36)
[2017-12-14] MEDS: cefTRIAXone(*) 1 GM in NS 0.9% 50 ML* 50 ML IVPB SCH (21:22)
[2017-12-14] MEDS: Azithromycin IV(*) 500 MG in NS 0.9% 250 ML* 250 ML IVPB SCH (21:49)
[2017-12-15] MEDS: Albuterol/Ipratropium NEB.SOL* Albuterol 2.5 MG/Ipratropium 0.5 MG 3 ML INH SCH ×4 (01:48→19:03)
[2017-12-15] MEDS: Mometasone/Formoter 200/5 MDI INH SCH ×2 (07:03→19:04)
[2017-12-15] MEDS: guaiFENesin ER TAB 600 MG PO SCH (08:44)
[2017-12-15] MEDS: Famotidine TAB* 20 MG PO SCH ×2 (08:44→20:26)
[2017-12-15] MEDS: Rivaroxaban TAB(*) 20 MG TAB PO SCH (08:44)
[2017-12-15] MEDS: acetaZOLAMIDE TAB* 250 MG PO SCH ×2 (08:44→20:26)
[2017-12-15] MEDS: Cetirizine* 10 MG TAB PO SCH (08:44)
[2017-12-15] MEDS: predniSONE TAB* 50 MG PO SCH (08:45)
[2017-12-15] MEDS: Oxybutynin TAB* 5 MG PO SCH ×2 (08:45→20:26)
[2017-12-15] MEDS: Acetaminophen TAB* 325 MG PO PRN ×2 (08:55→23:13)
--- NOTE | 2017-12-15 11:28 | PN ---
Subjective Date of Service: 12/15/17 Interval History: Hypoxic this morning on ambulation and also with a "coughing fit." Still complains of dyspnea on exertion just to bathroom. Unable to lie flat due to shortness of breath. Objective Active Medications: Acetaminophen (Tylenol Tab*) 650 mg PO Q4H PRN PRN Reason: FEVER/PAIN Last Admin: 12/15/17 08:55 Dose: 650 mg Acetazolamide (Diamox Tab*) 250 mg PO BID [facility] Last Admin: 12/15/17 08:44 Dose: 250 mg Albuterol (Ventolin 2.5 Mg/3 Ml Neb.Juanita*) 2.5 mg INH Q2H PRN PRN Reason: SOB/WHEEZING Albuterol/Ipratropium (Duoneb (Albuterol 2.5 Mg/Ipratropium 0.5 Mg)) 1 neb INH [id number] AWAKE [facility] Last Admin: 12/15/17 07:03 Dose: 1 neb Cetirizine HCl (Zyrtec*) 10 mg PO DAILY [facility] PRN Reason: Protocol Last Admin: 12/15/17 08:44 Dose: 10 mg Famotidine (Pepcid Tab*) 20 mg PO BID [facility] Last Admin: 12/15/17 08:44 Dose: 20 mg Guaifenesin (Mucinex*) 600 mg PO BID [facility] Last Admin: 12/15/17 08:44 Dose: 600 mg Azithromycin 500 mg/ Sodium (Chloride) 250 mls @ 250 mls/hr IVPB Q24H [facility] Last Admin: 12/14/17 21:49 Dose: 250 mls/hr Ceftriaxone Sodium 1 gm/ (Sodium Chloride) 50 mls @ 200 mls/hr IVPB Q24H [facility] Last Admin: 12/14/17 21:22 Dose: 200 mls/hr Mometasone Furoate/Formoterol Fumar (Dulera 200/5 Mdi*) 2 puff INH BID [facility] Last Admin: 12/15/17 07:03 Dose: 2 puff Montelukast Sodium (Singulair Tab*) 10 mg PO BEDTIME [facility] Last Admin: 12/14/17 20:36 Dose: 10 mg Ondansetron HCl (Zofran Inj*) 4 mg IV Q6H PRN PRN Reason: NAUSEA Last Admin: 12/13/17 23:28 Dose: 4 mg Oxybutynin Chloride (Ditropan Tab*) 10 mg PO BID [facility] Last Admin: 12/15/17 08:45 Dose: 10 mg Prednisone (Deltasone Tab*) 50 mg PO DAILY [facility] Last Admin: 12/15/17 08:45 Dose: 50 mg Rivaroxaban (Xarelto(*)) 20 mg PO DAILY [facility] Last Admin: 12/15/17 08:44 Dose: 20 mg Vital Signs - 8 hr 12/15/17 12/15/17 12/15/17 04:35 07:08 07:42 Temperature 97.9 F 98.3 F Pulse Rate 113 107 103 Respiratory 22 17 17 Rate Blood Pressure 124/70 114/70 (mmHg) O2 Sat by Pulse 89 94 92 Oximetry 12/15/17 08:00 Temperature Pulse Rate Respiratory 16 Rate Blood Pressure (mmHg) O2 Sat by Pulse 92 Oximetry Oxygen Devices in Use Now: Nasal Cannula Appearance: alert, sitting up in chair with her fiance at the bedside Eyes: No Scleral Icterus Ears/Nose/Mouth/Throat: NL Teeth, Lips, Gums Neck: Trachea Midline, No Thyroid Enlargement, Masses, - - no JVP at 90 degrees Respiratory: - - diffuse expiratory wheezing, no rhonchi or rales Cardiovascular: RRR Abdominal: NL Sounds; No Tenderness; No Distention, No Hepatosplenomegaly Lymphatic: No Cervical Adenopathy Skin: No Rash or Ulcers Neurological: Alert and Oriented x 3 Result Diagrams: 12/13/17 06:06 12/13/17 06:06 Microbiology and Other Data: Microbiology 12/13/17 11:05 Legionella Urinary Antigen - Final Urine Negative Legionella Antigen Streptococcus pneumoniae Ag Screen - Final Negative S. pneumo Antigen 12/13/17 01:00 Gram Stain - Final Sputum Assess/Plan/Problems-Billing Assessment: 46 yo female with history of hereditary ataxia and recent PE (08/2017 at [facility] ) admitted with shortness of breath, being treated for copd exacerbation - Patient Problems (1) Acute respiratory failure with hypoxia Current Visit: Yes Status: Acute Code(s): J96.01 - ACUTE RESPIRATORY FAILURE WITH HYPOXIA SNOMED Code(s): 92919788 Comment: Still hypoxic with ambulation. Repeat CXR today Continue to treat for COPD exacerbation with nebs and steroids Also has JAYDA diagnosed on recent sleep study She is being treated for pneumonia with ceftriaxone/azithro--sputum culture shows H. flu; initial cxr without pneumonia (Initial ABG showed po2 of 64 on FIO2 of 0.4) (2) History of pulmonary embolism Current Visit: Yes Status: Acute Code(s): Z86.711 - PERSONAL HISTORY OF PULMONARY EMBOLISM SNOMED Code(s): 307177255 Comment: Continue rivaroxaban. She is sure she never misses a dose, never ran out, and d-dimer was negative at admission, ruling out new acute clot (3) SIRS (systemic inflammatory response syndrome) Current Visit: Yes Status: Acute Code(s): R65.10 - SIRS OF NON-INFECTIOUS ORIGIN W/O ACUTE ORGAN DYSFUNCTION SNOMED Code(s): 150970680 Comment: Present at admission, now resolved on antibiotics. Received volume resuscitation at admission (4) Hereditary ataxia Current Visit: No Status: Acute Code(s): G11.9 - HEREDITARY ATAXIA, UNSPECIFIED SNOMED Code(s): 82357347 Comment: Resume acetazolamide. (5) Orthopnea Current Visit: Yes Status: Acute Code(s): R06.01 - ORTHOPNEA SNOMED Code(s ): 97263472 Comment: She and her fiance report months of orthopnea and dyspnea on exertion. She does not have notable pulmonary edema on exam, but it may be chronic, also may have elevated RV presures from PE Check TTE today Status and Disposition: inpatient for ongoing hypoxia
[2017-12-15] MEDS ORDERED: Perflutren Lipid Microsphere* 3 ML VIAL ONE (13:29)
--- NOTE | 2017-12-15 15:00 | RAD ---
Indication: Shortness of breath, cough, hypoxia. Possible pneumonia. History of chronic obstructive pulmonary disease. History of tobacco use. Comparison: December 12, 2017 Technique: Upright AP 1218 hours Report: Elevated lung volumes and both diffuse mild prominence of the interstitial markings and patchy rarefaction of the mid to upper lung zone interstitial markings. Patchy alveolar consolidation at the bilateral lower lung zones with equivocal mild interval increase concerning for potential bronchopneumonia. Negative for pleural effusion or pneumothorax. Upper normal heart size. Unremarkable central pulmonary vasculature and mediastinal contours. IMPRESSION: Chronic obstructive pulmonary disease with potential superimposed bronchopneumonia.
--- NOTE | 2017-12-15 16:19 | ECHO ---
Patient: TAMIKA MCCORMICK [facility] Rec#: [id number] : 1960 Date: 12/15/2017 Age: 56y Height: 162.56 cm / 64.0 in Weight: 98.43 kg / 216.9 lbs Sex: F BSA: 2.03 Room#: 421 Admit Date#: 12/12/2017 Type: Inpatient Referring: Donna Morse MD Reading: Heidi Roach MD Film Developer: Milena Russ KELVIN CC: YELENA Morin Transthoracic Echocardiogram Indication: Respiratory Abn//SOB BP: 114/70 HR: 93 Rhythm: NSR Findings History: COPD,PE in the past, ataxia. Technical Comments: The study is technically limited due to the patient's history of COPD. Definity used to enhance images. The study is technically limited due to the patient's smoking history. Left Ventricle: The left ventricular chamber size is normal. Posterior wall hypertrophy is observed. Global left ventricular wall motion and contractility are within normal limits. There is normal left ventricular systolic function. The estimated ejection fraction is 55-60%. There is no consistent Doppler evidence of clinically significant diastolic dysfunction. The patient was unable to perform a Valsalva maneuver. Left Atrium: The left atrial chamber size is normal. Right Ventricle: The right ventricular cavity size is normal. Aortic Valve: The aortic valve is trileaflet. There is no evidence of aortic valve thickening. There is no evidence of aortic regurgitation. There is no evidence of aortic stenosis. Mitral Valve: The mitral valve leaflets appear normal. There is a trace of mitral regurgitation. There is no evidence of mitral stenosis. Tricuspid Valve: The tricuspid valve leaflets are normal. There is a physiologic tricuspid regurgitation. Unable to estimate the right ventricular systolic pressure. There is evidence that pulmonary hypertension may be underestimated. Pulmonic Valve: The pulmonic valve appears normal. There is no evidence of pulmonic regurgitation. There is no pulmonic stenosis. Pericardium: A pericardial fat pad is visualized. Aorta: There is mild dilatation of the ascending aorta. There is no dilatation of the aortic arch. There is no dilation of the aortic root. Pulmonary Artery: The main pulmonary artery appears normal. Venous: The venous system is not well visualized. Contrast: Definity was used to optimize study. A total of 5 ml used. Intravenous contrast was used to enhance endocardial border definition. Summary: There was not any prior study for comparison. Conclusions The left ventricular chamber size is normal. The estimated ejection fraction is 55-60%. There is a trace of mitral regurgitation. There is mild dilatation of the ascending aorta. Measurements Name Value Normal Range RVIDd (AP) 2D 2.5 cm (0.9 - 2.6) RVDdMajor (2D) 3.8 cm (2.2 - 4.4) RAd ISD 4CH 4.4 cm (3.4 - 4.9) RA (A4C)W 3.2 cm (2.9 - 4.6) IVSd (2D) 1 cm (0.6 - 1) LVPWd (2D) 1.4 cm (0.6 - 1) LVIDd (2D) 4.3 cm (3.6 - 5.4) LVIDs (2D) 3.4 cm - LV FS (2D) 21 % (25 - 45) Aortic Annulus 2.1 cm (1.4 - 2.6) Ao root diameter (2D) 3.5 cm (2.1 - 3.5) Ascending Ao 3.6 cm (2.1 - 3.4) Aortic arch 2.8 cm (1.8 - 3.4) Descending Ao 0.8 cm - LA dimension (AP) 2D 3.2 cm (2.3 - 3.8) LAd ISD 4CH 4.6 cm (2.9 - 5.3) LA ISD 4CH W 3.3 cm (2.5 - 4.5) Name Value Normal Range MV E-wave Vmax 1.2 m/sec - MV deceleration time 121 msec - LV septal e' Vmax 0.12 m/sec - LV lateral e' Vmax 0.13 m/sec - LV E:e' septal ratio 10 ratio - LV E:e' lateral ratio 9.23 ratio - Name Value Normal Range AV Vmax 1.5 m/sec - AV VTI 27.3 cm - AV peak gradient 8.49 mmHg - AV mean gradient 4.39 mmHg - LVOT Vmax 1.3 m/sec - LVOT VTI 26.8 cm - LVOT peak gradient 6.33 mmHg - LVOT mean gradient 3.41 mmHg - Name Value Normal Range PV Vmax 1 m/sec - PV peak gradient 3.79 mmHg -
[2017-12-15] MEDS: guaiFENesin/CODIEN 100MG-10MG* 5 ML UDC PO PRN (20:25)
[2017-12-15] MEDS: Montelukast Sodium TAB* 10 MG PO SCH (20:26)
[2017-12-15] MEDS: cefTRIAXone(*) 1 GM in NS 0.9% 50 ML* 50 ML IVPB SCH (20:26)
[2017-12-15] MEDS: Azithromycin IV(*) 500 MG in NS 0.9% 250 ML* 250 ML IVPB SCH (23:12)
[2017-12-16] MEDS ORDERED: traMADol TAB* 50 MG PO PRN (00:03)
[2017-12-16] MEDS: Albuterol/Ipratropium NEB.SOL* Albuterol 2.5 MG/Ipratropium 0.5 MG 3 ML INH SCH ×4 (01:55→19:37)
[2017-12-16] MEDS: Mometasone/Formoter 200/5 MDI INH SCH ×2 (08:26→19:39)
[2017-12-16] MEDS: acetaZOLAMIDE TAB* 250 MG PO SCH ×2 (08:50→21:19)
[2017-12-16] MEDS: predniSONE TAB* 50 MG PO SCH (08:50)
[2017-12-16] MEDS: Famotidine TAB* 20 MG PO SCH ×2 (08:50→21:19)
[2017-12-16] MEDS: Rivaroxaban TAB(*) 20 MG TAB PO SCH (08:51)
[2017-12-16] MEDS: Oxybutynin TAB* 5 MG PO SCH ×2 (08:51→21:19)
[2017-12-16] MEDS: Cetirizine* 10 MG TAB PO SCH (08:51)
[2017-12-16] MEDS: Acetaminophen TAB* 325 MG PO PRN ×3 (08:51→21:30)
--- NOTE | 2017-12-16 09:34 | PN ---
Subjective Date of Service: 12/16/17 Interval History: Feels "awful." Still short of breath just walking to the bathroom. She is frustrated and discouraged, feels anxious about possibly needing oxygen senior care. Still has a cough, had a little relief with codeine. Objective Active Medications: Acetaminophen (Tylenol Tab*) 650 mg PO Q4H PRN PRN Reason: FEVER/PAIN Last Admin: 12/16/17 08:51 Dose: 650 mg Acetazolamide (Diamox Tab*) 250 mg PO BID [facility] Last Admin: 12/16/17 08:50 Dose: 250 mg Albuterol (Ventolin 2.5 Mg/3 Ml Neb.Juanita*) 2.5 mg INH Q2H PRN PRN Reason: SOB/WHEEZING Albuterol/Ipratropium (Duoneb (Albuterol 2.5 Mg/Ipratropium 0.5 Mg)) 1 neb INH [id number] AWAKE [facility] Last Admin: 12/16/17 08:26 Dose: 1 neb Cetirizine HCl (Zyrtec*) 10 mg PO DAILY [facility] PRN Reason: Protocol Last Admin: 12/16/17 08:51 Dose: 10 mg Famotidine (Pepcid Tab*) 20 mg PO BID [facility] Last Admin: 12/16/17 08:50 Dose: 20 mg Guaifenesin/Codeine Phosphate (Robitussin Ac 100mg-10mg*) 5 ml PO Q6H PRN PRN Reason: COUGH Last Admin: 12/15/17 20:25 Dose: 5 ml Azithromycin 500 mg/ Sodium (Chloride) 250 mls @ 250 mls/hr IVPB Q24H [facility] Last Admin: 12/15/17 23:12 Dose: 250 mls/hr Ceftriaxone Sodium 1 gm/ (Sodium Chloride) 50 mls @ 200 mls/hr IVPB Q24H [facility] Last Admin: 12/15/17 20:26 Dose: 200 mls/hr Methylprednisolone Sodium Succinate (Solu-Medrol 40 Mg) 40 mg IV Q8H [facility] Mometasone Furoate/Formoterol Fumar (Dulera 200/5 Mdi*) 2 puff INH BID [facility] Last Admin: 12/16/17 08:26 Dose: 2 puff Montelukast Sodium (Singulair Tab*) 10 mg PO BEDTIME [facility] Last Admin: 12/15/17 20:26 Dose: 10 mg Ondansetron HCl (Zofran Inj*) 4 mg IV Q6H PRN PRN Reason: NAUSEA Last Admin: 12/13/17 23:28 Dose: 4 mg Oxybutynin Chloride (Ditropan Tab*) 10 mg PO BID [facility] Last Admin: 12/16/17 08:51 Dose: 10 mg Rivaroxaban (Xarelto(*)) 20 mg PO DAILY [facility] Last Admin: 12/16/17 08:51 Dose: 20 mg Tramadol HCl (Ultram*) 50 mg PO Q6H PRN PRN Reason: PAIN Vital Signs - 8 hr 12/16/17 12/16/17 04:24 08:32 Temperature 97.6 F Pulse Rate 88 83 Respiratory 16 16 Rate Blood Pressure 107/91 (mmHg) O2 Sat by Pulse 94 93 Oximetry Oxygen Devices in Use Now: Nasal Cannula Appearance: alert, depressed, able to speak in full sentences Eyes: No Scleral Icterus Ears/Nose/Mouth/Throat: NL Teeth, Lips, Gums Neck: NL Appearance and Movements; NL JVP Respiratory: Symmetrical Chest Expansion and Respiratory Effort, - - diffuse expiratory wheezes, coarse rhonchi diffusely Cardiovascular: NL Sounds; No Murmurs; No JVD, RRR Abdominal: NL Sounds; No Tenderness; No Distention Extremities: - - 2+ edema b/l Skin: No Rash or Ulcers Neurological: Alert and Oriented x 3 Result Diagrams: 12/13/17 06:06 12/13/17 06:06 Microbiology and Other Data: Microbiology 12/13/17 11:05 Legionella Urinary Antigen - Final Urine Negative Legionella Antigen Streptococcus pneumoniae Ag Screen - Final Negative S. pneumo Antigen 12/13/17 01:00 Gram Stain - Final Sputum Assess/Plan/Problems-Billing Assessment: 46 yo female with history of hereditary ataxia and recent PE (08/2017 at [facility] ) admitted with shortness of breath, being treated for copd exacerbation - Patient Problems (1) Acute respiratory failure with hypoxia Current Visit: Yes Status: Acute Code(s): J96.01 - ACUTE RESPIRATORY FAILURE WITH HYPOXIA SNOMED Code(s): 04876646 Comment: Due to COPD exacerbation from pneumonia Increase steroids to solumedrol today Also has JAYDA diagnosed on recent sleep study Continue ceftriaxone/azithromycin for CAP Get PFTs from [facility] today (Initial ABG showed po2 of 64 on FIO2 of 0.4) (2) History of pulmonary embolism Current Visit: Yes Status: Acute Code(s): Z86.711 - PERSONAL HISTORY OF PULMONARY EMBOLISM SNOMED Code(s): 890139454 Comment: Continue rivaroxaban. She is sure she never misses a dose, never ran out, and d-dimer was negative at admission, ruling out new acute clot (3) SIRS (systemic inflammatory response syndrome) Current Visit: Yes Status: Acute Code(s): R65.10 - SIRS OF NON-INFECTIOUS ORIGIN W/O ACUTE ORGAN DYSFUNCTION SNOMED Code(s): 050250965 Comment: Present at admission, now resolved on antibiotics. Received volume resuscitation at admission (4) Hereditary ataxia Current Visit: No Status: Acute Code(s): G11.9 - HEREDITARY ATAXIA, UNSPECIFIED SNOMED Code(s): 54057336 Comment: Resume acetazolamide. (5) Orthopnea Current Visit: Yes Status: Acute Code(s): R06.01 - ORTHOPNEA SNOMED Code(s ): 42974688 Comment: TTE showed normal LV function and RV function Status and Disposition: inpatient for hypoxia, iv steroids
[2017-12-16 09:49] LABS: Hematocrit 40 % (35-47); Hemoglobin 12.9 g/dl (12.0-16.0); Mean Corpuscular HGB Conc 32 g/dl (31-36); Mean Corpuscular Hemoglobin 29 pg (27-31); Mean Corpuscular Volume 91 fL (80-97); Platelet Count 302 10^3/ul (150-450); Red Cell Distribution Width 16 % (10.5-15); White Blood Count 12.9 10^3/ul (3.5-10.8)
[2017-12-16] MEDS ORDERED: methylPREDNISolone SOD 40 MG* 1 ML VIAL IV SCH (10:00)
[2017-12-16 10:17] LABS: Monocytes % 12 % (0-7)
[2017-12-16] MEDS: Furosemide IV* 10 MG/ML VIAL (40 MG) IV SCH (11:17)
[2017-12-16] MEDS: methylPREDNISolone SOD 40 MG* 1 ML VIAL IV SCH ×2 (14:17→21:56)
[2017-12-16] MEDS: Montelukast Sodium TAB* 10 MG PO SCH (21:19)
[2017-12-16] MEDS: cefTRIAXone(*) 1 GM in NS 0.9% 50 ML* 50 ML IVPB SCH (21:19)
[2017-12-16] MEDS: guaiFENesin/CODIEN 100MG-10MG* 5 ML UDC PO PRN (21:30)
[2017-12-16] MEDS: Azithromycin IV(*) 500 MG in NS 0.9% 250 ML* 250 ML IVPB SCH (21:56)
[2017-12-17] MEDS: Albuterol/Ipratropium NEB.SOL* Albuterol 2.5 MG/Ipratropium 0.5 MG 3 ML INH SCH ×4 (01:27→19:21)
[2017-12-17] MEDS: methylPREDNISolone SOD 40 MG* 1 ML VIAL IV SCH ×2 (06:07→13:19)
[2017-12-17] MEDS: Mometasone/Formoter 200/5 MDI INH SCH ×2 (07:13→19:21)
[2017-12-17] MEDS: Cetirizine* 10 MG TAB PO SCH (09:14)
[2017-12-17] MEDS: Rivaroxaban TAB(*) 20 MG TAB PO SCH (09:15)
[2017-12-17] MEDS: acetaZOLAMIDE TAB* 250 MG PO SCH (09:15)
[2017-12-17] MEDS: Oxybutynin TAB* 5 MG PO SCH (09:15)
[2017-12-17] MEDS: Famotidine TAB* 20 MG PO SCH (09:15)
[2017-12-17] MEDS: Furosemide IV* 10 MG/ML VIAL (40 MG) IV SCH (09:16)
[2017-12-17] MEDS: Acetaminophen TAB* 325 MG PO PRN (09:21)
[2017-12-17 13:26] VITALS: BP 137/80
--- NOTE | 2017-12-17 23:51 | DS ---
CC: YELENA Silverio DISCHARGE SUMMARY: DATE OF ADMISSION: 12/12/17 DATE OF DISCHARGE: 12/17/17 PRINCIPAL DISCHARGE DIAGNOSES: 1. Community-acquired pneumonia. 2. Acute on chronic hypoxic respiratory failure. 3. Chronic obstructive pulmonary disease exacerbation. SECONDARY DISCHARGE DIAGNOSES: 1. Recent pulmonary embolism. 2. Hereditary ataxia. DISCHARGE MEDICATIONS: 1. Albuterol inhaler 2 puffs q.4 p.r.n. 2. Acetazolamide 250 mg b.i.d. 3. Pepcid 20 mg b.i.d. 4. Symbicort 1 puff inhaled b.i.d. 5. Albuterol nebulizer q.4 for the next 3 days and then q.4 p.r.n. wheezing. 6. Spiriva 2 puffs inhaled daily. 7. Singulair 10 mg q.h.s. 8. Oxybutynin 10 mg b.i.d. 9. Zyrtec 10 mg daily. 10. Xarelto 20 mg daily. 11. Azithromycin 250 mg daily for 3 more days. 12. Cefpodoxime 200 mg q.12 for 3 more days. 13. Guaifenesin with codeine 5 mL q.6 p.r.n. cough. 14. Prednisone taper as follows: 50 mg daily for 2 days and then 30 mg daily for 2 days and then 20 mg daily for 2 days and then 10 mg daily for 2 days. HOSPITAL COURSE BY PROBLEM: 1. Acute on chronic hypoxic respiratory failure. Ms. Sosa has never had home oxygen; however, re ports that she has been sick since last fall. So it is possible that she has been hypoxic for someti me; however, and even after she had received 6 days of antibiotics and steroids on this admission, he r pulse ox dropped to 87% with ambulation. She is being discharged on home oxygen with 2 L with exer tion. I am attributing her hypoxia to a COPD exacerbation in combination with pneumonia; however, I cannot rule out the possibility that she has ongoing COPD which has not been quantified and she may n eed oxygen fdc. She will need to follow up with her rough and truing machine operator and her PCP to retest her mn ed for oxygen within the next 2 weeks. 2. Sepsis due to community acquired pneumonia. At admission, she met SIRS criteria with a suspect p ulmonary source despite her chest x-ray being negative. Several days later, a chest x-ray was repeate d and did show a bronchopneumonia. At admission, she was empirically started on ceftriaxone and azit hromycin which was continued through her hospitalization and her sputum stain was positive for haemop hilus influenzae. Because she has had 3 recent courses of antibiotics with levofloxacin and Augmenti n all of which she has failed, I am treating her with 3 more days of cefpodoxime and azithromycin. 3. COPD exacerbation. She follows with [facility], but has never been able to have PFT magnus eduled. I attempted to schedule her followup appointment with her rough and truing machine operator; however, they are s cheduling patients 3 months in advance. She certainly needs PFTs to quantify the extent of her obstr uctive lung disease so I am attempting to have her follow up with Dr. Purvis which she is willing to do. She in on good controller medications at home with Symbicort and Breo and has a nebulizer at [facility] and is instructed to continue q.4 nebulizers while awake for the next 3 days. I am also dischargin g her on an 8-day prednisone taper given her frequent hospitalization and recent steroid use. 4. Hereditary ataxia. She is continued on her home acetazolamide. DISPOSITION: Ms. Sosa is discharged to home on 12/17/17 with her fiance and instruction for no ex ertional activities over the next week. She has ambulated in the hallway with her nurse and understa nds that she must wear 2 L of oxygen when ambulating at all times. She will continue antibiotics for 3 more days and prednisone for 8 more days. I have also provided her with a script for guaifenesin with codeine. [id number]/[facility] #: [id number]
[2017-12-18] MEDS: Albuterol/Ipratropium NEB.SOL* Albuterol 2.5 MG/Ipratropium 0.5 MG 3 ML INH SCH (00:47)
== END 2017-12-17 15:45 | disposition home or self-care (01) | DRG 720 ==
LOC: ED 20:33 → MED 22:38
PROVIDERS: ADMIT Hospitalist; ATTEND Internal Medicine
DX: A41.9 Sepsis, unspecified organism (principal); J18.0 Bronchopneumonia, unspecified organism; J96.21 Acute and chronic respiratory failure with hypoxia; J44.1 Chronic obstructive pulmonary disease with (acute) exacerbation; J44.0 Chronic obstructive pulmonary disease with (acute) lower respiratory infection; G11.9 Hereditary ataxia, unspecified; E87.2 Acidosis; R74.8 Abnormal levels of other serum enzymes; K44.9 Diaphragmatic hernia without obstruction or gangrene; G43.909 Migraine, unspecified, not intractable, without status migrainosus; E66.9 Obesity, unspecified; G47.33 Obstructive sleep apnea (adult) (pediatric); B96.3 Hemophilus influenzae [H. influenzae] as the cause of diseases classified elsewhere; Z86.711 Personal history of pulmonary embolism; Z88.1 Allergy status to other antibiotic agents; Z82.49 Family history of ischemic heart disease and other diseases of the circulatory system; Z80.1 Family history of malignant neoplasm of trachea, bronchus and lung; Z87.891 Personal history of nicotine dependence; Z83.3 Family history of diabetes mellitus; Z68.37 Body mass index [BMI] 37.0-37.9, adult; Z79.51 Long term (current) use of inhaled steroids; Z79.01 Long term (current) use of anticoagulants; Z99.81 Dependence on supplemental oxygen
CPT/HCPCS: 36415; 36600; 71045; 80048; 80053; 81003; 81015; 82550; 82803; 83605; 83880; 84145; 84484; 85025; 85379; 85610; 85652; 85730; 86140; 87040; 87070; 87077; 87086; 87185; 87205; 87502; 87899; 93005; 93306; 94640; 94760; 99284; A9270-GY; C8929; J0456; J0696; J1940; J2405; J2920; J2930; J7512

== ENCOUNTER 2018-11-30 07:54 | Emergency (ER) | payer OTHER ==
[2018-11-30 08:34] VITALS: BP 137/82
[2018-11-30 08:57] LABS: Influenza A Molecular NEGATIVE (Negative); Influenza B Molecular NEGATIVE (Negative)
--- NOTE | 2018-11-30 09:15 | UC ---
Throat Pain/Nasal [place] HPI - HPI Summary HPI Summary: 57-year-old female comes in with a chief complaint of one to 2 days of upper respiratory tract infection symptoms. She's having body aches chills rhinorrhea cough chest congestion and wheezing. She's been using albuterol which does help with the breathing symptoms. - History of Current Complaint Chief Complaint: UCRespiratory Stated Complaint: FLU SX'S Time Seen by Provider: 11/30/18 09:03 Hx Last Menstrual Period: age 48 Pain Intensity: 0 - Allergies/Home Medications Allergies/Adverse Reactions: Allergies Allergy/AdvReac Type Severity Reaction Status Date / Time erythromycin base Allergy Facial Verified 11/30/18 08:18 Redness/Flushing PMH/Surg Hx/FS Hx/Imm Hx Previously Healthy: Yes Respiratory History: Asthma Other History Of: Negative For: HIV, Hepatitis B, Hepatitis C, Anticoagulant Therapy - Surgical History Surgical History: Yes Surgery Procedure, Year, and Place: 1988 CYST REMOVED FROM NECK, [facility], tubal. 10/2014 RIGHT SHOULDER SURGERIES X 2, [facility] - Family History Known Family History: Positive: None, Diabetes, Other - FHx is negative for DVT Negative: Cardiac Disease, Hypertension, Seizure Disorder Family History: FHx of [place] - Social History Alcohol Use: None Substance Use Type: None Smoking Status (MU): Former Smoker Type: Cigarettes Amount Used/How Often: 1 PPD X 25 YEARS. Quit in 2013 Length of Time of Smoking/Using Tobacco: QUIT 2013 Have You Smoked in the Last Year: No When Did the Patient Quit Smoking/Using Tobacco: 2012 - Immunization History Most Recent Influenza Vaccination: fall 2016 Most Recent Tetanus Shot: unkown Most Recent Pneumonia Vaccination: <10 yrs Review of Systems All Other Systems Reviewed And Are Negative: Yes Constitutional: Positive: Chills Skin: Positive: Negative Eyes: Positive: Negative ENT: Positive: Sore Throat, Nasal Discharge, Sinus Congestion Respiratory: Positive: Shortness Of Breath, Cough, Other - see hpi Cardiovascular: Positive: Negative Gastrointestinal: Positive: Negative Motor: Positive: Negative Neurovascular: Positive: Negative Musculoskeletal: Positive: Negative Neurological: Positive: Negative Psychological: Positive: Negative Is Patient Immunocompromised?: No Physical Exam Triage Information Reviewed: Yes Appearance: No Pain Distress, Well-Nourished, Ill-Appearing - mild Vital Signs: Initial Vital Signs Temp 99.5 F 11/30/18 08:28 Pulse 96 03/27/19 08:28 Resp 20 11/30/18 08:28 BP 137/82 11/30/18 08:28 Pulse Ox 96 11/30/18 08:28 Vital Signs Reviewed: Yes Eye Exam: Normal Eyes: Positive: Conjunctiva Clear ENT: Positive: Pharyngeal erythema, Nasal congestion, Nasal drainage, TMs normal Neck exam: Normal Neck: Positive: Supple Respiratory: Positive: Lungs clear, Normal breath sounds, No respiratory distress Cardiovascular: Positive: RRR Musculoskeletal Exam: Normal Musculoskeletal: Positive: Strength Intact, ROM Intact Neurological Exam: Normal Neurological: Positive: Alert, Muscle Tone Normal Psychological Exam: Normal Psychological: Positive: Age Appropriate Behavior Skin Exam: Normal Throat Pain/Nasal Course/Dx - Course Course Of Treatment: DISCUSSED VIRAL VERSES BACTERIAL INFECTION AND THE ROLE OF ANTIBIOTICS. THE PATIENT WISHES TO BE ON ANTIBIOTIC AT THIS TIME. - Differential Dx/Diagnosis Provider Diagnosis: Upper respiratory infection, Asthma Discharge - Sign-Out/Discharge Documenting (check all that apply): Patient Departure All imaging exams completed and their final reports reviewed: No Studies - Discharge Plan Condition: Stable Disposition: HOME Prescriptions: DOXYcycline CAP(*) [DOXYcycline 100MG CAP(*)] 100 mg PO BID #20 cap GuaiFENesin DM* [Robitussin DM*] 10 ml PO Q4H PRN #180 ml PRN Reason: Cough predniSONE TAB* [Deltasone 20 MG TAB*] 40 mg PO DAILY #10 tab Patient Education Materials: Asthma (ED), Upper Respiratory Infection (ED) Referrals: Bib Armstrong MD [Primary Care Provider] - Additional Instructions: FOLLOW UP WITH YOUR DOCTOR IF NOT COMPLETELY IMPROVED. GET RECHECKED FOR ANY WORSENING OF YOUR CONDITION OR QUESTIONS OR CONCERNS. - Billing Disposition and Condition Condition: STABLE Disposition: Home
== END 2018-11-30 09:24 | disposition home or self-care (01) ==
LOC: UCCORT 07:54
DX: J06.9 Acute upper respiratory infection, unspecified (principal); J45.909 Unspecified asthma, uncomplicated; Z88.1 Allergy status to other antibiotic agents; Z87.891 Personal history of nicotine dependence
CPT/HCPCS: 99212; G0463